=== PATIENT | male | born 1935 | race Caucasian/White ===

== ENCOUNTER 2018-05-16 19:48 | Emergency (ER) | payer MEDICARE, OTHER ==
[2018-05-16 21:36] VITALS: BP 121/67
--- NOTE | 2018-05-16 23:33 | EDM.PDOC ---
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 However he was very embarrassed and did not want nourished C with bleeding was coming from. It truly was not coming from the urine but the scrotum. He has no pain in his abdomen pain, diarrhea, large stools, kidney stones, back pain, fever, or chills or cough. No history of straining himself or heavy lifting. 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: Other (see below) (No Pain) - Related Data Allergies Allergy/AdvReac Type Severity Reaction Status Date / Time No Known Allergies Allergy Verified 05/16/18 20:57 Home Meds: Home Meds Lisinopril 20 mg PO DAILY 01/23/16 [History] metFORMIN HCl [Metformin HCl] 1,000 mg PO BID 01/23/16 [History] Gabapentin [Neurontin] 300 mg PO 05/16/18 [History] atorvaSTATin [Lipitor] 05/16/18 [History] glipiZIDE [Glipizide ER] 5 mg PO 05/16/18 [History] hydroCHLOROthiazide [Hydrochlorothiazide] 05/16/18 [History] Past Medical History HEENT History: Reports: Epistaxis Cardiovascular History: Reports: High Cholesterol, Hypertension Gastrointestinal History: Reports: GERD Musculoskeletal History: Reports: Arthritis, Back Pain, Chronic, Osteoarthritis Endocrine/Metabolic History: Reports: Diabetes, Type II - Past Surgical History HEENT Surgical History: Reports: Cataract Surgery GI Surgical History: Reports: Appendectomy, Cholecystectomy Musculoskeletal Surgical History: Reports: Shoulder Surgery Social & Family History - Tobacco Use Smoking Status *Q: Never Smoker - Alcohol Use Days Per Week of Alcohol Use: 2 Number of Drinks Per Day: 1 Total Drinks Per Week: 2 - Recreational Drug Use Recreational Drug Use: No ED ROS GENERAL - Review of Systems Review Of Systems: See Below Constitutional: Reports: No Symptoms HEENT: Reports: No Symptoms Respiratory: Reports: No Symptoms Cardiovascular: Reports: No Symptoms Endocrine: Reports: No Symptoms GI/Abdominal: Reports: No Symptoms : Reports: No Symptoms Musculoskeletal: Reports: No Symptoms Skin: Reports: No Symptoms Neurological: Reports: No Symptoms Hematologic/Lymphatic: Reports: No Symptoms Immunologic: Reports: No Symptoms ED EXAM, RENAL/ - Physical Exam Exam: See Below Text/Narrative:: He is concerned about small amount of blood on the surface of the scrotum has no pain Exam Limited By: No Limitations General Appearance: Alert, WD/WN, No Apparent Distress Eye Exam: Bilateral Eye: Normal Inspection Ears: Normal External Exam, Normal Canal, Normal TMs Nose: Normal Inspection Throat/Mouth: Normal Inspection, Normal Lips, Normal Teeth, Normal Gums, Normal Oropharynx, Normal Voice Head: Atraumatic, Normocephalic Neck: Normal Inspection, Supple, Non-Tender Respiratory/Chest: No Respiratory Distress, Lungs Clear, Normal Breath Sounds, No Accessory Muscle Use, Chest Non-Tender Cardiovascular: Normal Peripheral Pulses, Regular Rate, Rhythm, No Edema, No Gallop, No JVD, No Murmur, No Rub (Male) Exam: No Hernia, Other (Punctate dermal capillary bleed 1 focal superficial venous varicosity 2 mm size with a 3 inch diameter spot of blood on right extremity placed in his previous underwear to stop the bleeding bleeding) Neurological: Alert, Oriented, CN II-XII Intact, Normal Cognition, Normal Gait, Normal Reflexes, No Motor/Sensory Deficits Psychiatric: Normal Affect Skin Exam: Warm, Normal Color, Other (Left scrotal punctate 2 mm radius crust of blood of a superficial per varicosity 2 mm size. He has about 30-40 superficial 2 mm varicosities on the scrotum) Lymphatic: No Adenopathy Course - Vital Signs Last Recorded V/S: Last Vital Signs Temp 37.2 C 05/16/18 20:00 Pulse 72 05/16/18 20:00 Resp 16 05/16/18 20:00 BP 121/67 05/16/18 20:00 Pulse Ox 93 L 05/16/18 20:00 - Orders/Labs/Meds Orders: Active Orders 24 hr Category Date Time Status UA W/MICROSCOPIC [URIN] Stat Lab 05/16/18 20:35 Ordered Labs: Laboratory Tests 05/16/18 Range/Units 20:35 Urine Color Yellow (YELLOW) Urine Appearance Clear (CLEAR) Urine pH 5.0 (5.0-6.5) Ur Specific [place] 1.015 (1.010-1.025) Urine Protein Negative (NEGATIVE) mg/dL Urine Glucose (UA) Normal (NEGATIVE) mg/dL Urine Ketones Negative (NEGATIVE) mg/dL Urine Occult Blood Negative (NEGATIVE) Urine Nitrite Negative (NEGATIVE) Urine Bilirubin Negative (NEGATIVE) Urine Urobilinogen Normal (NEGATIVE) mg/dL Ur Leukocyte Esterase Negative (NEGATIVE) Urine RBC 0-5 (0) Urine WBC 0-5 (0) Ur Squamous Epith Cells Occasional (NS,R,O) Urine Bacteria Rare H (NS) Departure - Departure Time of Disposition: 20:50 Disposition: Home, Self-Care 01 Clinical Impression: Scrotal varicose veins - Discharge Information *PRESCRIPTION DRUG MONITORING PROGRAM REVIEWED*: No *COPY OF PRESCRIPTION DRUG MONITORING REPORT IN PATIENT RENAN: No Referrals: Valdo Downs MD [Primary Care Provider] - Forms: ED Department Discharge Additional Instructions: you have approximately thirty scattered 2mm superficial 2m epidermal venous varicosiies today with your lawn mowing the friction of these veins on the skin surface of the scrotum against your pants opened up one small varicosity and then resulted in bleeding with pressure and time the bleeding should decrease I anticipate you will have potential for bleeding of any one of the other superficial varicosities in the future be sure to shower on daily basis to avoid any superficial infection there was no suggestion of infection on the exam tonight see your MD in week otherwise earlier if worse - My Orders Last 24 Hours: My Active Orders 05/16/18 20:35 UA W/MICROSCOPIC [URIN] Stat - Assessment/Plan Last 24 Hours: My Active Orders 05/16/18 20:35 UA W/MICROSCOPIC [URIN] Stat
== END 2018-05-16 21:10 | disposition home or self-care (01) ==
LOC: FB.ED 19:48
DX: I86.1 Scrotal varices (principal); I10 Essential (primary) hypertension; E78.00 Pure hypercholesterolemia, unspecified; K21.9 Gastro-esophageal reflux disease without esophagitis; E11.9 Type 2 diabetes mellitus without complications; Z79.899 Other long term (current) drug therapy; Z79.84 Long term (current) use of oral hypoglycemic drugs
CPT/HCPCS: 81001; 99283

== ENCOUNTER 2019-12-02 13:32 | Emergency (ER) | payer OTHER, MEDICARE ==
[2019-12-02] MEDS ORDERED: Metoprolol Tartrate 25 MG Tab PO ONE (13:42)
--- NOTE | 2019-12-02 14:11 | EDM.PDOC ---
ED HPI GENERAL MEDICAL PROBLEM - General Stated Complaint: TACHYCARDIA Time Seen by Provider: 12/02/19 13:55 Source of Information: Reports: Patient History Limitations: Reports: No Limitations - History of Present Illness INITIAL COMMENTS - FREE TEXT/NARRATIVE: Patient presented to the ER because of palpitations. He denies any chest pain, sypnea,nausea,vomiting or dizziness. He missed taking his lisinopril and HCTZ x 3 days. - Related Data Allergies Allergy/AdvReac Type Severity Reaction Status Date / Time No Known Allergies Allergy Verified 12/02/19 13:56 Home Meds: Home Meds Lisinopril 20 mg PO DAILY 01/23/16 [History] metFORMIN HCl [Metformin HCl] 1,000 mg PO BID 01/23/16 [History] Gabapentin [Neurontin] 300 mg PO 05/16/18 [History] atorvaSTATin [Lipitor] 05/16/18 [History] glipiZIDE [Glipizide ER] 5 mg PO 05/16/18 [History] hydroCHLOROthiazide [Hydrochlorothiazide] 05/16/18 [History] Past Medical History HEENT History: Reports: Epistaxis Cardiovascular History: Reports: High Cholesterol, Hypertension Gastrointestinal History: Reports: GERD Musculoskeletal History: Reports: Arthritis, Back Pain, Chronic, Osteoarthritis Endocrine/Metabolic History: Reports: Diabetes, Type II - Past Surgical History HEENT Surgical History: Reports: Cataract Surgery GI Surgical History: Reports: Appendectomy, Cholecystectomy Musculoskeletal Surgical History: Reports: Shoulder Surgery ED ROS GENERAL - Review of Systems Review Of Systems: See Below Constitutional: Reports: No Symptoms HEENT: Reports: No Symptoms Respiratory: Reports: No Symptoms Cardiovascular: Reports: No Symptoms. Denies: Lightheadedness Endocrine: Reports: No Symptoms GI/Abdominal: Reports: No Symptoms : Reports: No Symptoms Musculoskeletal: Reports: No Symptoms Skin: Reports: No Symptoms, Other Psychiatric: Reports: No Symptoms ED EXAM, GENERAL - Physical Exam Exam: See Below Exam Limited By: No Limitations General Appearance: Alert, No Apparent Distress Nose: Normal Inspection, Normal Mucosa Throat/Mouth: Normal Inspection, Normal Lips Head: Atraumatic, Normocephalic Neck: Normal Inspection, Supple, Non-Tender Respiratory/Chest: No Respiratory Distress, Lungs Clear, Normal Breath Sounds Cardiovascular: Normal Peripheral Pulses, No Edema, No Gallop, No Murmur, No Rub , Tachycardia Back Exam: Normal Inspection, Full Range of Motion Neurological: Alert, Oriented, CN II-XII Intact Psychiatric: Normal Affect Skin Exam: Warm Course - Vital Signs Text/Narrative:: labs/EKG was discussed with patient and verbalized full understanding EKG-Sinus Tach Trop-147 metoprolol tartrate 50 mg po x1 Heparin 5000 IV x1 Heparin 1000 u/hr ASA 324 mg lopressor 5 mg IV x2 doses Case discussed with Dr Keating who agreed with the above plan Last Recorded V/S: Last Vital Signs Temp 37.0 C 12/02/19 13:35 Pulse 82 12/02/19 15:06 Resp 18 12/02/19 13:35 BP 136/91 H 12/02/19 15:06 Pulse Ox 98 12/02/19 13:35 - Orders/Labs/Meds Orders: Active Orders 24 hr Category Date Time Status EKG Documentation Completion [RC] ASDIRECTED Care 12/02/19 13:42 Active Chest 1V Frontal [CR] Stat Exams 12/02/19 14:29 Ordered Heparin 25,000 Units @ 20MLS/HR Med 12/02/19 14:33 Ordered Heparin Sodium/0.45% NaCl [Heparin 25,000 Units in 1/2 NS 500 ML] 500 ml IV ASDIRECTED Sodium Chloride 0.9% [Saline Flush] Med 12/02/19 14:56 Ordered 10 ml FLUSH ASDIRECTED PRN EKG 12 Lead [EK] Routine Ther 12/02/19 13:41 Ordered Medication Orders Heparin Sodium/Sodium Chloride (Heparin 25,000 Units In 1/2 Ns 500 Ml) 500 mls @ 20 mls/hr IV ASDIRECTED ALICE Sodium Chloride (Saline Flush) 10 ml FLUSH ASDIRECTED PRN PRN Reason: Keep Vein Open Last Admin: 12/02/19 15:07 Dose: 10 ml Labs: Laboratory Tests 12/02/19 12/02/19 12/02/19 Range/Units 13:55 13:55 13:55 WBC 8.6 (4.5-12.0) X10-3/uL RBC 4.54 (4.30-5.75) x10(6)uL Hgb 12.9 L (13.5-17.8) g/dL Hct 38.8 (30.0-51.3) % MCV 85.3 (80-96) fL MCH 28.3 (27.7-33.6) pg MCHC 33.2 (32.2-35.4) g/dL RDW 13.2 (11.5-15.5) % Plt Count 339 (125-369) X10(3)uL MPV 7.3 L (7.4-10.4) fL Neut % (Auto) 69.9 (46-82) % Lymph % (Auto) 21.2 (13-37) % [place] % (Auto) 6.8 (4-12) % Eos % (Auto) 2 (1.0-5.0) % Baso % (Auto) 1 (0-2) % Neut # (Auto) 6.1 (1.6-8.3) # Lymph # (Auto) 1.8 (0.6-5.0) # [place] # (Auto) 0.6 (0.0-1.3) # Eos # (Auto) 0.1 (0.0-0.8) # Baso # (Auto) 0.0 (0.0-0.2) # PT (9.0-11.1) sec INR (1.00-1.24) APTT (24.4-33.2) SECONDS Sodium 143 (135-145) mmol/L Potassium 3.9 (3.5-5.3) mmol/L Chloride 103 (100-110) mmol/L Carbon Dioxide 29 (21-32) mmol/L BUN 22 H (7-18) mg/dL Creatinine 1.4 H (0.70-1.30) mg/dL Est Cr Clr Drug Dosing 37.32 mL/min Estimated GFR (MDRD) 48 L (>60) BUN/Creatinine Ratio 15.7 (9-20) Glucose 160 H (80-116) mg/dL Calcium 8.8 (8.6-10.2) mg/dL Magnesium (1.8-2.5) mg/dL Total Bilirubin 0.5 (0.1-1.3) mg/dL AST 15 (5-25) IU/L ALT 16 (12-36) U/L Alkaline Phosphatase 108 (56-112) IU/L Troponin I 147.4 H* (4.0-60.3) pg/mL NT-Pro-B Natriuret Pep (<=450) pg/mL Total Protein 7.7 (6.0-8.0) g/dL Albumin 3.6 (3.2-4.6) g/dL Globulin 4.1 g/dL Albumin/Globulin Ratio 0.9 12/02/19 12/02/19 12/02/19 Range/Units 13:55 14:00 14:00 WBC (4.5-12.0) X10-3/uL RBC (4.30-5.75) x10(6)uL Hgb (13.5-17.8) g/dL Hct (30.0-51.3) % MCV (80-96) fL MCH (27.7-33.6) pg MCHC (32.2-35.4) g/dL RDW (11.5-15.5) % Plt Count (125-369) X10(3)uL MPV (7.4-10.4) fL Neut % (Auto) (46-82) % Lymph % (Auto) (13-37) % [place] % (Auto) (4-12) % Eos % (Auto) (1.0-5.0) % Baso % (Auto) (0-2) % Neut # (Auto) (1.6-8.3) # Lymph # (Auto) (0.6-5.0) # [place] # (Auto) (0.0-1.3) # Eos # (Auto) (0.0-0.8) # Baso # (Auto) (0.0-0.2) # PT 10.5 (9.0-11.1) sec INR 1.09 (1.00-1.24) APTT 23.6 L (24.4-33.2) SECONDS Sodium (135-145) mmol/L Potassium (3.5-5.3) mmol/L Chloride (100-110) mmol/L Carbon Dioxide (21-32) mmol/L BUN (7-18) mg/dL Creatinine (0.70-1.30) mg/dL Est Cr Clr Drug Dosing mL/min Estimated GFR (MDRD) (>60) BUN/Creatinine Ratio (9-20) Glucose (80-116) mg/dL Calcium (8.6-10.2) mg/dL Magnesium 1.6 L (1.8-2.5) mg/dL Total Bilirubin (0.1-1.3) mg/dL AST (5-25) IU/L ALT (12-36) U/L Alkaline Phosphatase (56-112) IU/L Troponin I (4.0-60.3) pg/mL NT-Pro-B Natriuret Pep 3295 H* (<=450) pg/mL Total Protein (6.0-8.0) g/dL Albumin (3.2-4.6) g/dL Globulin g/dL Albumin/Globulin Ratio Meds: Medications Generic Name Dose Route Start Last Admin Trade Name Freq PRN Reason Stop Dose Admin Heparin Sodium/Sodium Chloride 500 mls @ 20 mls/hr 12/02/19 14:33 Heparin 25,000 Units In 1/2 Ns 500 Ml IV ASDIRECTED ALICE Sodium Chloride 10 ml 12/02/19 14:56 12/02/19 15:07 Saline Flush FLUSH 10 ml ASDIRECTED PRN Administration Keep Vein Open Discontinued Medications Generic Name Dose Route Start Last Admin Trade Name Freq PRN Reason Stop Dose Admin Aspirin 324 mg 12/02/19 14:32 12/02/19 14:45 Aspirin PO 12/02/19 14:33 324 mg ONETIME ONE Administration Heparin Sodium (Porcine) 5,000 units 12/02/19 14:32 12/02/19 14:54 Heparin Sodium IVPUSH 12/02/19 14:33 5,000 units ONETIME ONE Administration Metoprolol Tartrate 5 mg/ 55 mls @ 100 mls/hr 12/02/19 14:31 12/02/19 14:47 Sodium Chloride IV 12/02/19 15:03 100 mls/hr ONETIME ONE Administration Metoprolol Tartrate 50 mg 12/02/19 13:42 12/02/19 13:55 Lopressor PO 12/02/19 13:43 50 mg ONETIME ONE Administration Metoprolol Tartrate 5 mg 12/02/19 14:57 12/02/19 15:06 Lopressor IVPUSH 12/02/19 14:58 5 mg ONETIME ONE Administration Departure - Departure Time of Disposition: 15:00 Disposition: DC/Tfer to Acute Hospital 02 Reason for Transfer *Q: Other (AMI,CHF) Condition: Good Clinical Impression: Acute myocardial infarction, CHF (congestive heart failure) Referrals: PCP,Not In Area [Primary Care Provider] - Sepsis Event Note - Focused Exam Vital Signs: Vital Signs Temp Pulse Pulse Resp BP BP Pulse Ox 12/02/19 15:06 82 136/91 H 12/02/19 14:47 130 H 131/81 12/02/19 13:55 134 H 150/82 H 12/02/19 13:35 37.0 C 134 H 18 150/82 H 98 Date Exam was Performed: 12/02/19 Time Exam was Performed: 15:12 - My Orders Last 24 Hours: My Active Orders 12/02/19 13:41 EKG 12 Lead [EK] Routine 12/02/19 13:42 EKG Documentation Completion [RC] ASDIRECTED 12/02/19 14:29 Chest 1V Frontal [CR] Stat 12/02/19 14:33 Heparin 25,000 Units @ 20MLS/HR Heparin Sodium/0.45% NaCl [Heparin 25,000 Units in 1/2 NS 500 ML] 500 ml IV ASDIRECTED 12/02/19 14:56 Sodium Chloride 0.9% [Saline Flush] 10 ml FLUSH ASDIRECTED PRN - Assessment/Plan Last 24 Hours: My Active Orders 12/02/19 13:41 EKG 12 Lead [EK] Routine 12/02/19 13:42 EKG Documentation Completion [RC] ASDIRECTED 12/02/19 14:29 Chest 1V Frontal [CR] Stat 12/02/19 14:33 Heparin 25,000 Units @ 20MLS/HR Heparin Sodium/0.45% NaCl [Heparin 25,000 Units in 1/2 NS 500 ML] 500 ml IV ASDIRECTED 12/02/19 14:56 Sodium Chloride 0.9% [Saline Flush] 10 ml FLUSH ASDIRECTED PRN
[2019-12-02] MEDS ORDERED: Metoprolol Tartrate 5 MG in Sodium Chloride 0.9% 50 ML IV ONE (14:31)
[2019-12-02] MEDS ORDERED: Heparin Sodium 5,000 Units/ML Vial IVPUSH ONE (14:32)
[2019-12-02] MEDS ORDERED: Aspirin 81 MG Tab.Chew PO ONE (14:32)
[2019-12-02] MEDS ORDERED: Heparin Sodium/0.45% NaCl 500 ML IV SCH (14:33)
[2019-12-02] MEDS ORDERED: Metoprolol Tartrate 5 MG/5 ML SDV IVPUSH ONE (14:57)
[2019-12-02] MEDS: Sodium Chloride 0.9% 10 ML Syringe FLUSH PRN ×3 (14:59→15:40)
[2019-12-02] MEDS ORDERED: Diltiazem 25 MG/5 ML SDV IVPUSH ONE (15:19)
[2019-12-02 17:12] VITALS: BP 102/50; PULSE 64
== END 2019-12-02 16:00 ==
LOC: FB.ED 13:32
DX: I21.9 Acute myocardial infarction, unspecified (principal); I11.0 Hypertensive heart disease with heart failure; I50.9 Heart failure, unspecified; E78.00 Pure hypercholesterolemia, unspecified; K21.9 Gastro-esophageal reflux disease without esophagitis; M19.90 Unspecified osteoarthritis, unspecified site; E11.9 Type 2 diabetes mellitus without complications; Z79.899 Other long term (current) drug therapy; Z79.84 Long term (current) use of oral hypoglycemic drugs
CPT/HCPCS: 36415; 71045; 80053; 83735; 83880; 84484; 85025; 85610; 85730; 93005; 96365; 96375; 96376; 99285; A9270; J1644; J3490; J7050

== ENCOUNTER 2020-07-20 11:26 | Inpatient (IN) | payer MEDICARE, OTHER ==
--- NOTE | 2020-07-20 13:14 | CT ---
INDICATION: Fall, head injury-fell on face. Memory loss now. Confusion. CT HEAD WITHOUT CONTRAST: Spiral 3.75 mm axial sections were obtained through the brain without contrast 07/20/2020 with axial, sagittal and coronal reconstructions and compared with 06/07/2015. Total exam DLP was 1296.53 mGy-cm. The mastoid air cells and paranasal sinuses appear to be well aerated. Moderate degenerative changes noted at the odontoid-atlanto joint. No cranial fracture site was noted. There is suggestion of some soft tissue swelling frontally, especially on the left. On the left, a minimal scalp hematoma is suggested. The orbits appear to be intact. No significant shift of midline structures was noted. The ventricles are prominent, compatible with central atrophy. There is a progression of white matter disease with decreased density, periventricular in location, compatible with moderate microvascular disease type changes, although other causes of leukoencephalopathy cannot be excluded. Internal carotid artery and vertebral artery calcifications are noted. In the left basal ganglia, there is a rounded area of decreased density, which is new compared with the previous study and may represent a lacunar infarct, possibly one that is evolving. No other abnormal areas of density are identified-no bleeding site or hematoma was seen. Calcifications are noted in both basal ganglia, most likely not of clinical significance. IMPRESSION: 1. No definite acute intracranial abnormality, although there is a new abnormal area of density in the left basal ganglia, which likely represents a lacunar infarct, and could be evolving. 2. Cerebral vascular disease with arterial calcifications and white matter changes compatible with moderate microvascular disease. 3. Central atrophy. [facility]
--- NOTE | 2020-07-20 13:21 | CT ---
INDICATION: Fall, facial injury. MAXILLOFACIAL SINUS CT: Axial 2.5 mm images were obtained through the maxillofacial area and revealed no evidence of a fracture site. There is a very minimal retention cyst at the floor of the right maxillary antrum with the maxillary infundibula appearing patent and the paranasal sinuses are otherwise well aerated. Hypertrophic degenerative changes are noted at the odontoid atlanto joint with sclerosis and subchondral cystic changes present in that area. IMPRESSION: No acute fracture of the maxillofacial bones. Total exam DLP was 203.72 mGy-cm. MTDD
--- NOTE | 2020-07-20 13:36 | CT ---
INDICATION: Fall, injury. CT CERVICAL SPINE: Spiral 2.5 mm axial sections were obtained through the cervical spine with sagittal and coronal reconstructions, 07/20/2020-no comparison. Total exam DLP was 462.47 mGy-cm. Hypertrophic degenerative changes are noted with subchondral cystic changes at the odontoid atlanto joint, hypertrophic changes are present with sclerosis. There is some minimal narrowing of the odontoid atlanto interval. Relative mild hypertrophic degenerative changes are noted at the lateral masses of the upper and middle levels with bridging hyperostotic changes noted anteriorly and posteriorly at C2-3 and mostly anteriorly at C3-4 and where the most prominent hypertrophic changes are present. Hypertrophic changes anteriorly and posterolaterally are noted at C4-5, C5-6 and C6-7. Narrowing of the disc spaces at C4-5 and especially C5-6 and C6-7 is noted. Hypertrophic changes are also noted anteriorly and laterally at C7-T1. There is some narrowing of the neural foramina at C4-5 and C5-6 on the right and C5-6 mainly on the left. The vertebral elements appear to be well aligned without a definite fracture or dislocation identified. Hypertrophic changes are noted at the uncinate joints in general. There may be partial fusion of the uncinate joints at C2-3. Anterior and posterior partial fusion at the C2-3 level may also be present, although the appearance may simply be on the basis of bridging hyperostosis. The posterior elements do not appear to be fused fully. Vertebral body heights appear to be fairly well maintained. Bone density appear to be grossly normal. However, at the posterior elements of C5-6, there are bony growths on either side of the midline off the lamina, which protrude into the spinal canal narrowing it anterior posteriorly slightly. These changes may represent osteomas or possibly unusual osteoid osteoma. Nuclear bone imaging may be helpful for further evaluation, as well as MRI. An additional similar finding is noted off the lamina which appears more hypertrophic, degenerative in nature at the C4 level on the left. IMPRESSION: 1. No definite acute fracture or dislocation. 2. 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 3. Additional bony appearing densities seen posteriorly impinging on the canal slightly at C5-6. Etiology indeterminate, could represent osteoma. Report was called to Dr. Guerra at [address] [facility]
[2020-07-20] MEDS ORDERED: Iopamidol 755 Mg/ML 100 ML Bottle IV ONE (13:50)
[2020-07-20] MEDS ORDERED: Diatrizoate Meglumine/Diatrizoate Sodium 37% 30 ML Bottle PO ONE (13:50)
[2020-07-20] MEDS: Sodium Chloride 0.9% 1,000 ML IV SCH ×2 (14:46→22:59)
--- NOTE | 2020-07-20 14:53 | PCM.HP.2 ---
H&P History of Present Illness - General Date of Service: 07/20/20 Admit Problem/Dx: Admission Diagnosis/Problem Admission Diagnosis/Problem Anemia Source of Information: Patient, Old Records History Limitations: Reports: Other (Memory loss) - History of Present Illness Initial Comments - Free Text/Narative: There is a 84-year-old male patient is a resident of the [facility]. He comes to the ER because he fell and hit his face. He was found to have a hemoglobin of just above 5. He states he's had some blood in his stool. He is on anticoagulation for atrial fibrillation currently. He denies any fevers, chills, stomach aches, nausea, vomiting, hematemesis, dysuria, pyuria, hematuria. He says he feels weak when he walks. He does not remember where he lives. He thinks he still lives and [place]. - Related Data Allergies/Adverse Reactions: Allergies Allergy/AdvReac Type Severity Reaction Status Date / Time No Known Allergies Allergy Verified 12/02/19 13:56 Home Medications: Home Meds metFORMIN HCl [Metformin HCl] 1,000 mg PO BIDMEALS 01/23/16 [History] Donepezil [Aricept] 5 mg PO BEDTIME 12/02/19 [History] Acetaminophen 650 mg PO Q4H PRN 07/20/20 [History] Acetaminophen [Acetaminophen ER] 1,300 mg PO BID PRN 07/20/20 [History] Apixaban [Eliquis] 2.5 mg PO BID 07/20/20 [History] Aspirin [Halfprin] 81 mg PO DAILY 07/20/20 [History] Furosemide [Lasix] 20 mg PO DAILY 07/20/20 [History] Gabapentin [Neurontin] 300 mg PO DAILY 07/20/20 [History] Loperamide [Imodium] 2 mg PO ASDIRECTED PRN 07/20/20 [History] Mag Hydrox/Aluminum Hyd/Simeth [Mylanta Maximum Strength Liq] 10 ml PO QID PRN 07/20/20 [History] Magnesium Hydroxide [Milk of Magnesia] 30 ml PO DAILY PRN 07/20/20 [History] Metoprolol Tartrate [Lopressor] 50 mg PO BID 07/20/20 [History] Triamcinolone Acetonide [Triamcinolone Acetonide 0.1% Crm] 1 applic TOP TID PRN 07/20/20 [History] atorvaSTATin [Lipitor] 40 mg PO DAILY 07/20/20 [History] bisacodyL [Dulcolax] 10 mg RC Q3D PRN 07/20/20 [History] dilTIAZem HCL [Cartia Xt] 120 mg PO DAILY 07/20/20 [History] glipiZIDE [Glucotrol] 2.5 mg PO BID 07/20/20 [History] guaiFENesin [Robitussin] 200 mg PO Q4H PRN 07/20/20 [History] Past Medical History HEENT History: Reports: Epistaxis Cardiovascular History: Reports: Afib, High Cholesterol, Hypertension, [place] Gastrointestinal History: Reports: GERD Musculoskeletal History: Reports: Arthritis, Back Pain, Chronic, Osteoarthritis Endocrine/Metabolic History: Reports: Diabetes, Type II - Past Surgical History HEENT Surgical History: Reports: Cataract Surgery GI Surgical History: Reports: Appendectomy, Cholecystectomy Musculoskeletal Surgical History: Reports: Shoulder Surgery Social & Family History - Tobacco Use Tobacco Use Status *Q: Never Tobacco User - Caffeine Use Caffeine Use: Reports: Coffee - Living Situation & Occupation Social History Comment: Lives in the [facility]. H&P Review of Systems - Review of Systems: Review Of Systems: See Below General: Reports: Weakness HEENT: Reports: No Symptoms Pulmonary: Reports: No Symptoms Cardiovascular: Reports: No Symptoms Gastrointestinal: Reports: Bloody Stool Genitourinary: Reports: No Symptoms Skin: Reports: Other (He hurt his face and his neck.) Psychiatric: Reports: Other (Memory loss) Hematologic/Lymphatic: Reports: No Symptoms Immunologic: Reports: No Symptoms Exam - Exam Exam: See Below - Vital Signs Vital Signs: Last Vital Signs Temp 96.5 F L 07/20/20 11:26 Pulse 122 H 07/20/20 11:26 Resp 23 H 07/20/20 11:26 BP 121/65 07/20/20 11:26 Pulse Ox 99 07/20/20 11:26 Weight: 190 lb 1.6 oz - Exam General: Alert, Cooperative. No: Oriented HEENT: Hearing Intact, Posterior Pharynx Clear, TMs Clear, Other (Abrasion on his nose) Neck: Supple, Trachea Midline Lungs: Clear to Auscultation, Normal Respiratory Effort Cardiovascular: Regular Rate, Regular Rhythm GI/Abdominal Exam: Normal Bowel Sounds, Soft, Non-Tender, No Distention Extremities: Normal Inspection, Non-Tender, No Pedal Edema Skin: Warm, Intact Neuro Extensive - Mental Status: Alert, Normal Mood/Affect. No: Oriented x3, Normal Cognition Psychiatric: Alert, Normal Affect, Normal Mood - Patient Data Lab Results Last 24 hrs: Laboratory Results - last 24 hr 07/20/20 07/20/20 07/20/20 Range/Units 12:15 12:15 12:15 WBC 7.6 (4.5-12.0) X10-3/uL RBC 2.41 L (4.30-5.75) x10(6)uL Hgb 5.4 L* D (13.5-17.8) g/dL Hct 17.2 L* D (30.0-51.3) % MCV 71.3 L (80-96) fL MCH 22.3 L (27.7-33.6) pg MCHC 31.3 L (32.2-35.4) g/dL RDW 19.8 H (11.5-15.5) % Plt Count 331 (125-369) X10(3)uL MPV 6.8 L (7.4-10.4) fL Neut % (Auto) 76.0 (46-82) % Lymph % (Auto) 12.2 L (13-37) % [place] % (Auto) 9.9 (4-12) % Eos % (Auto) 1 (1.0-5.0) % Baso % (Auto) 1 (0-2) % Neut # (Auto) 5.9 (1.6-8.3) # Lymph # (Auto) 0.9 (0.6-5.0) # [place] # (Auto) 0.7 (0.0-1.3) # Eos # (Auto) 0.1 (0.0-0.8) # Baso # (Auto) 0.0 (0.0-0.2) # PT 12.7 H (9.0-11.1) sec INR 1.19 (1.00-1.24) APTT 23.1 L (24.4-33.2) SECONDS Sodium 141 (135-145) mmol/L Potassium 4.0 (3.5-5.3) mmol/L Chloride 103 (100-110) mmol/L Carbon Dioxide 27 (21-32) mmol/L BUN 47 H D (7-18) mg/dL Creatinine 1.4 H (0.70-1.30) mg/dL Est Cr Clr Drug Dosing TNP Estimated GFR (MDRD) 48 L (>60) BUN/Creatinine Ratio 33.6 H (9-20) Glucose 167 H (80-116) mg/dL Calcium 8.9 (8.6-10.2) mg/dL Total Bilirubin 0.5 (0.1-1.3) mg/dL AST 21 D (5-25) IU/L ALT 21 D (12-36) U/L Alkaline Phosphatase 105 (56-112) IU/L Troponin I (4.0-60.3) pg/mL Total Protein 6.8 (6.0-8.0) g/dL Albumin 3.1 L (3.2-4.6) g/dL Globulin 3.7 g/dL Albumin/Globulin Ratio 0.8 Blood Type Crossmatch 07/20/20 07/20/20 Range/Units 12:15 12:15 WBC (4.5-12.0) X10-3/uL RBC (4.30-5.75) x10(6)uL Hgb (13.5-17.8) g/dL Hct (30.0-51.3) % MCV (80-96) fL MCH (27.7-33.6) pg MCHC (32.2-35.4) g/dL RDW (11.5-15.5) % Plt Count (125-369) X10(3)uL MPV (7.4-10.4) fL Neut % (Auto) (46-82) % Lymph % (Auto) (13-37) % [place] % (Auto) (4-12) % Eos % (Auto) (1.0-5.0) % Baso % (Auto) (0-2) % Neut # (Auto) (1.6-8.3) # Lymph # (Auto) (0.6-5.0) # [place] # (Auto) (0.0-1.3) # Eos # (Auto) (0.0-0.8) # Baso # (Auto) (0.0-0.2) # PT (9.0-11.1) sec INR (1.00-1.24) APTT (24.4-33.2) SECONDS Sodium (135-145) mmol/L Potassium (3.5-5.3) mmol/L Chloride (100-110) mmol/L Carbon Dioxide (21-32) mmol/L BUN (7-18) mg/dL Creatinine (0.70-1.30) mg/dL Est Cr Clr Drug Dosing Estimated GFR (MDRD) (>60) BUN/Creatinine Ratio (9-20) Glucose (80-116) mg/dL Calcium (8.6-10.2) mg/dL Total Bilirubin (0.1-1.3) mg/dL AST (5-25) IU/L ALT (12-36) U/L Alkaline Phosphatase (56-112) IU/L Troponin I 26.7 (4.0-60.3) pg/mL Total Protein (6.0-8.0) g/dL Albumin (3.2-4.6) g/dL Globulin g/dL Albumin/Globulin Ratio Blood Type O POSITIVE Crossmatch See Detail Result Diagrams: 07/20/20 12:15 07/20/20 12:15 Kalpesh Results Last 24 hrs: Microbiology 07/20/20 14:10 Stool Occult Blood (KALPES[facility]) - Final Stool / Feces Sepsis Event Note - Evaluation Sepsis Screening Result: No Definite Risk - Focused Exam Vital Signs: Vital Signs Temp Pulse Resp BP Pulse Ox 07/20/20 11:26 96.5 F L 122 H 23 H 121/65 99 - Problem List (1) Facial contusion SNOMED Code(s): 579620874 ICD Code: S00.83XA - CONTUSION OF OTHER PART OF HEAD, INITIAL ENCOUNTER Status: Acute Current Visit: Yes (2) Fall SNOMED Code(s): 1123378, 840002580 ICD Code: W19.XXXA - UNSPECIFIED FALL, INITIAL ENCOUNTER Status: Acute Current Visit: Yes (3) Memory loss SNOMED Code(s): 02605474 ICD Code: R41.3 - OTHER AMNESIA Status: Acute Current Visit: Yes (4) Microcytic anemia SNOMED Code(s): 499911615 ICD Code: D50.9 - IRON DEFICIENCY ANEMIA, UNSPECIFIED Status: Acute Current Visit: Yes (5) Palliative care status SNOMED Code(s): 077514464 ICD Code: Z51.5 - ENCOUNTER FOR PALLIATIVE CARE Status: Acute Current Visit: Yes Problem List Initiated/Reviewed/Updated: Yes Orders Last 24hrs: Active Orders 24 hr Category Date Time Status Patient Status Manage Transfer [TRANSFER] Routine ADT 07/20/20 14:13 Active EKG Documentation Completion [RC] ASDIRECTED Care 07/20/20 11:53 Active Up With Assistance [RC] ASDIRECTED Care 07/20/20 14:45 Active Clear Liquid Diet [DIET] Diet 07/20/20 Dinner Active Abdomen Pelvis w Cont [CT] Stat Exams 07/20/20 13:08 Ordered PACKED CELLS [RED BLOOD CELLS LP] [BBK] Stat Lab 07/20/20 12:15 Received TYPE AND SCREEN [BBK] Stat Lab 07/20/20 12:15 Received Sodium Chloride 0.9% [Normal Saline] 1,000 ml Med 07/20/20 14:30 Active IV ASDIRECTED Sodium Chloride 0.9% [Normal Saline] 250 ml Med 07/20/20 14:00 Active IV ASDIRECTED SCD [Sequential Compression Device] [OM.PC] Routine Oth 07/20/20 14:45 Ordered Transfuse Red Blood Cells [COMM] Stat Oth 07/20/20 13:52 Ordered Resuscitation Status Routine Resus Stat 07/20/20 14:44 Ordered EKG 12 Lead [EK] Routine Ther 07/20/20 11:52 Ordered Medication Orders Sodium Chloride (Normal Saline) 250 mls @ 100 mls/hr IV ASDIRECTED ALICE Sodium Chloride (Normal Saline) 1,000 mls @ 100 mls/hr IV ASDIRECTED ALICE Last Admin: 07/20/20 14:46 Dose: 100 mls/hr Documented by: BEBO Assessment/Plan Comment:: 1. Admit for inpatient. 2. Give 2 units of red blood cells. 3. Waiting for guaiac stool. Consider surgical consult based on results. 4. DNR/DNI per what he was in the [facility]. 5. Serial hemoglobins 6. Clear liquid diet 7. Up with assist. 8. For clot prophylaxis SCDs. 9. Restart medications but hold anticoagulants and aspirin 10. Accu-Cheks twice a day. - Mortality Measure Prognosis:: Good
[2020-07-20] MEDS ORDERED: guaiFENesin 100 MG/5 ML Soln 5 ML UD Cup PO PRN (15:09)
[2020-07-20] MEDS ORDERED: Loperamide 2 MG Cap PO PRN (15:09)
[2020-07-20] MEDS ORDERED: Acetaminophen 650 MG Tab.ER PO PRN (15:09)
[2020-07-20] MEDS ORDERED: Magnesium Hydroxide 400 MG/5 ML Susp 30 ML Cup PO PRN (15:09)
[2020-07-20] MEDS ORDERED: Triamcinolone Acetonide 0.1% Crm 15 GM Tube TOP PRN (15:09)
[2020-07-20] MEDS ORDERED: Bisacodyl 10 MG Supp RECTAL PRN (15:09)
[2020-07-20] MEDS ORDERED: Aluminum Hydroxide/Magnesium Hydroxide Susp 30 ML Cup PO PRN (15:21)
--- NOTE | 2020-07-20 15:30 | EDM.PDOC ---
ED HPI GENERAL MEDICAL PROBLEM - General Chief Complaint: Head Injury Stated Complaint: FALL Time Seen by Provider: 07/20/20 11:35 Source of Information: Reports: Patient, Old Records History Limitations: Reports: Other - History of Present Illness INITIAL COMMENTS - FREE TEXT/NARRATIVE: Patient presented to the ED from [facility] because of a fall. He fell while sitting on a recliner and hit his face down into the floor. He sustained some facail abrasions. There is no LOC after the fall. Mr Desai said he is feeling weak at times and lately he had some dark looking stools. He has a history of AFIB and is taking eliquis and aspirin. - Related Data Allergies Allergy/AdvReac Type Severity Reaction Status Date / Time No Known Allergies Allergy Verified 12/02/19 13:56 Home Meds: Home Meds metFORMIN HCl [Metformin HCl] 1,000 mg PO BIDMEALS 01/23/16 [History] Donepezil [Aricept] 10 mg PO BEDTIME 12/02/19 [History] Acetaminophen 650 mg PO Q4H PRN 07/20/20 [History] Acetaminophen [Acetaminophen ER] 1,300 mg PO BID PRN 07/20/20 [History] Apixaban [Eliquis] 2.5 mg PO BID 07/20/20 [History] Aspirin [Halfprin] 81 mg PO DAILY 07/20/20 [History] Furosemide [Lasix] 20 mg PO DAILY 07/20/20 [History] Gabapentin [Neurontin] 300 mg PO DAILY 07/20/20 [History] Loperamide [Imodium] 2 mg PO ASDIRECTED PRN 07/20/20 [History] Mag Hydrox/Aluminum Hyd/Simeth [Mylanta Maximum Strength Liq] 10 ml PO QID PRN 07/20/20 [History] Magnesium Hydroxide [Milk of Magnesia] 30 ml PO DAILY PRN 07/20/20 [History] Metoprolol Tartrate [Lopressor] 50 mg PO BID 07/20/20 [History] Triamcinolone Acetonide [Triamcinolone Acetonide 0.1% Crm] 1 applic TOP TID PRN 07/20/20 [History] atorvaSTATin [Lipitor] 40 mg PO DAILY 07/20/20 [History] bisacodyL [Dulcolax] 10 mg RC Q3D PRN 07/20/20 [History] dilTIAZem HCL [Cartia Xt] 120 mg PO DAILY 07/20/20 [History] glipiZIDE [Glucotrol] 2.5 mg PO BID 07/20/20 [History] guaiFENesin [Robitussin] 200 mg PO Q4H PRN 07/20/20 [History] Past Medical History HEENT History: Reports: Epistaxis Cardiovascular History: Reports: Afib, High Cholesterol, Hypertension, [place] Gastrointestinal History: Reports: GERD Musculoskeletal History: Reports: Arthritis, Back Pain, Chronic, Osteoarthritis Endocrine/Metabolic History: Reports: Diabetes, Type II - Past Surgical History HEENT Surgical History: Reports: Cataract Surgery GI Surgical History: Reports: Appendectomy, Cholecystectomy Musculoskeletal Surgical History: Reports: Shoulder Surgery Social & Family History - Tobacco Use Tobacco Use Status *Q: Never Tobacco User - Caffeine Use Caffeine Use: Reports: Coffee ED ROS GENERAL - Review of Systems Review Of Systems: See Below Constitutional: Reports: No Symptoms HEENT: Reports: No Symptoms Respiratory: Reports: No Symptoms Cardiovascular: Reports: No Symptoms Endocrine: Reports: No Symptoms GI/Abdominal: Reports: No Symptoms : Reports: No Symptoms Musculoskeletal: Reports: No Symptoms Skin: Reports: Other (abrasions) Neurological: Reports: Weakness Psychiatric: Reports: No Symptoms Hematologic/Lymphatic: Reports: No Symptoms Immunologic: Reports: No Symptoms ED EXAM, GENERAL - Physical Exam Exam: See Below Exam Limited By: No Limitations General Appearance: Alert, No Apparent Distress Ears: Normal External Exam, Normal [place] Nose: Normal Inspection, Normal Mucosa, No Blood Throat/Mouth: Normal Inspection, Normal Lips, Normal Teeth Head: Atraumatic, Normocephalic Neck: Normal Inspection, Supple, Non-Tender, Full Range of Motion Respiratory/Chest: No Respiratory Distress, Lungs Clear, Normal Breath Sounds, No Accessory Muscle Use Cardiovascular: Normal Peripheral Pulses, Regular Rate, Rhythm, No Edema, No Gallop, No JVD, No Murmur GI/Abdominal: Normal Bowel Sounds, Soft, Non-Tender, No Distention Extremities: Normal Inspection, Non-Tender, No Pedal Edema, Pedal Edema Neurological: No Motor/Sensory Deficits, Memory Loss Remote Events Psychiatric: Normal Affect Skin Exam: Warm Course - Vital Signs Text/Narrative:: Labs/Head and C-spine CT/Abd-pelvis CT was discussed with patient and his niece(POA) NS @ 100 ml/hr Transfuse 2 U PRBC Last Recorded V/S: Last Vital Signs Temp 35.8 C L 07/20/20 11:26 Pulse 122 H 07/20/20 11:26 Resp 23 H 07/20/20 11:26 BP 121/65 07/20/20 11:26 Pulse Ox 99 07/20/20 11:26 - Orders/Labs/Meds Orders: Active Orders 24 hr Category Date Time Status EKG Documentation Completion [RC] ASDIRECTED Care 07/20/20 11:53 Active Abdomen Pelvis w Cont [CT] Stat Exams 07/20/20 13:08 Taken PACKED CELLS [RED BLOOD CELLS LP] [BBK] Stat Lab 07/20/20 12:15 Results PATIENT RETYPE [BBK] Stat Lab 07/20/20 12:15 Results TYPE AND SCREEN [BBK] Stat Lab 07/20/20 12:15 Results Sodium Chloride 0.9% [Normal Saline] 250 ml Med 07/20/20 14:00 Active IV ASDIRECTED Transfuse Red Blood Cells [COMM] Stat Oth 07/20/20 13:52 Ordered EKG 12 Lead [EK] Routine Ther 07/20/20 11:52 Ordered Medication Orders Acetaminophen (Tylenol) 650 mg PO Q4H PRN PRN Reason: Pain/Fever Acetaminophen (Tylenol Arthritis Pain) 1,300 mg PO BID PRN PRN Reason: OSTEOARTHRITIS PAIN Al Hydroxide/Mg Hydroxide (Mag-Al Susp) 10 ml PO QID PRN PRN Reason: Indigestion Atorvastatin Calcium (Lipitor) 40 mg PO DAILY ALICE Bisacodyl (Dulcolax) 10 mg RECTAL Q3D PRN PRN Reason: Constipation Diltiazem HCl (Cardizem Cd) 120 mg PO DAILY ALICE Donepezil HCl (Aricept) 10 mg PO BEDTIME ALICE Furosemide (Lasix) 20 mg PO DAILY ALICE Gabapentin (Neurontin) 300 mg PO DAILY ALICE Glipizide (Glucotrol) 2.5 mg PO BIDAC ALICE Guaifenesin (Robitussin) 200 mg PO Q4H PRN PRN Reason: Cough Sodium Chloride (Normal Saline) 250 mls @ 100 mls/hr IV ASDIRECTED ALICE Sodium Chloride (Normal Saline) 1,000 mls @ 100 mls/hr IV ASDIRECTED ALICE Last Admin: 07/20/20 14:46 Dose: 100 mls/hr Documented by: [id number] Loperamide HCl (Imodium) 2 mg PO ASDIRECTED PRN PRN Reason: Diarrhea Magnesium Hydroxide (Milk Of Magnesia) 30 ml PO DAILY PRN PRN Reason: Constipation Metoprolol Tartrate (Lopressor) 50 mg PO BID ALICE Triamcinolone Acetonide (Triamcinolone Acetonide 0.1% Crm) 0 gm TOP TID PRN PRN Reason: Rash Labs: Laboratory Tests 07/20/20 07/20/20 07/20/20 Range/Units 12:15 12:15 12:15 WBC 7.6 (4.5-12.0) X10-3/uL RBC 2.41 L (4.30-5.75) x10(6)uL Hgb 5.4 L* D (13.5-17.8) g/dL Hct 17.2 L* D (30.0-51.3) % MCV 71.3 L (80-96) fL MCH 22.3 L (27.7-33.6) pg MCHC 31.3 L (32.2-35.4) g/dL RDW 19.8 H (11.5-15.5) % Plt Count 331 (125-369) X10(3)uL MPV 6.8 L (7.4-10.4) fL Neut % (Auto) 76.0 (46-82) % Lymph % (Auto) 12.2 L (13-37) % [place] % (Auto) 9.9 (4-12) % Eos % (Auto) 1 (1.0-5.0) % Baso % (Auto) 1 (0-2) % Neut # (Auto) 5.9 (1.6-8.3) # Lymph # (Auto) 0.9 (0.6-5.0) # [place] # (Auto) 0.7 (0.0-1.3) # Eos # (Auto) 0.1 (0.0-0.8) # Baso # (Auto) 0.0 (0.0-0.2) # PT 12.7 H (9.0-11.1) sec INR 1.19 (1.00-1.24) APTT 23.1 L (24.4-33.2) SECONDS Sodium 141 (135-145) mmol/L Potassium 4.0 (3.5-5.3) mmol/L Chloride 103 (100-110) mmol/L Carbon Dioxide 27 (21-32) mmol/L BUN 47 H D (7-18) mg/dL Creatinine 1.4 H (0.70-1.30) mg/dL Est Cr Clr Drug Dosing TNP Estimated GFR (MDRD) 48 L (>60) BUN/Creatinine Ratio 33.6 H (9-20) Glucose 167 H (80-116) mg/dL Calcium 8.9 (8.6-10.2) mg/dL Total Bilirubin 0.5 (0.1-1.3) mg/dL AST 21 D (5-25) IU/L ALT 21 D (12-36) U/L Alkaline Phosphatase 105 (56-112) IU/L Troponin I (4.0-60.3) pg/mL Total Protein 6.8 (6.0-8.0) g/dL Albumin 3.1 L (3.2-4.6) g/dL Globulin 3.7 g/dL Albumin/Globulin Ratio 0.8 Blood Type Gel Antibody Screen Crossmatch 07/20/20 07/20/20 Range/Units 12:15 12:15 WBC (4.5-12.0) X10-3/uL RBC (4.30-5.75) x10(6)uL Hgb (13.5-17.8) g/dL Hct (30.0-51.3) % MCV (80-96) fL MCH (27.7-33.6) pg MCHC (32.2-35.4) g/dL RDW (11.5-15.5) % Plt Count (125-369) X10(3)uL MPV (7.4-10.4) fL Neut % (Auto) (46-82) % Lymph % (Auto) (13-37) % [place] % (Auto) (4-12) % Eos % (Auto) (1.0-5.0) % Baso % (Auto) (0-2) % Neut # (Auto) (1.6-8.3) # Lymph # (Auto) (0.6-5.0) # [place] # (Auto) (0.0-1.3) # Eos # (Auto) (0.0-0.8) # Baso # (Auto) (0.0-0.2) # PT (9.0-11.1) sec INR (1.00-1.24) APTT (24.4-33.2) SECONDS Sodium (135-145) mmol/L Potassium (3.5-5.3) mmol/L Chloride (100-110) mmol/L Carbon Dioxide (21-32) mmol/L BUN (7-18) mg/dL Creatinine (0.70-1.30) mg/dL Est Cr Clr Drug Dosing Estimated GFR (MDRD) (>60) BUN/Creatinine Ratio (9-20) Glucose (80-116) mg/dL Calcium (8.6-10.2) mg/dL Total Bilirubin (0.1-1.3) mg/dL AST (5-25) IU/L ALT (12-36) U/L Alkaline Phosphatase (56-112) IU/L Troponin I 26.7 (4.0-60.3) pg/mL Total Protein (6.0-8.0) g/dL Albumin (3.2-4.6) g/dL Globulin g/dL Albumin/Globulin Ratio Blood Type O POSITIVE Gel Antibody Screen Negative Crossmatch See Detail Meds: Medications Generic Name Dose Route Start Last Admin Trade Name Freq PRN Reason Stop Dose Admin Acetaminophen 650 mg 07/20/20 15:09 Tylenol PO Q4H PRN Pain/Fever Acetaminophen 1,300 mg 07/20/20 15:09 Tylenol Arthritis Pain PO BID PRN OSTEOARTHRITIS PAIN Al Hydroxide/Mg Hydroxide 10 ml 07/20/20 15:21 Mag-Al Susp PO QID PRN Indigestion Atorvastatin Calcium 40 mg 07/21/20 09:00 Lipitor PO DAILY ALICE Bisacodyl 10 mg 07/20/20 15:09 Dulcolax RECTAL Q3D PRN Constipation Diltiazem HCl 120 mg 07/21/20 09:00 Cardizem Cd PO DAILY ALICE Donepezil HCl 10 mg 07/20/20 21:00 Aricept PO BEDTIME ALICE Furosemide 20 mg 07/21/20 09:00 Lasix PO DAILY ALICE Gabapentin 300 mg 07/21/20 09:00 Neurontin PO DAILY [facility] Glipizide 2.5 mg 07/20/20 17:30 Glucotrol PO BIDAC [facility] Guaifenesin 200 mg 07/20/20 15:09 Robitussin PO Q4H PRN Cough Sodium Chloride 250 mls @ 100 mls/hr 07/20/20 14:00 Normal Saline IV ASDIRECTED [facility] Sodium Chloride 1,000 mls @ 100 mls/hr 07/20/20 14:30 07/20/20 14:46 Normal Saline IV 100 mls/hr ASDIRECTED [facility] Administration Loperamide HCl 2 mg 07/20/20 15:09 Imodium PO ASDIRECTED PRN Diarrhea Magnesium Hydroxide 30 ml 07/20/20 15:09 Milk Of Magnesia PO DAILY PRN Constipation Metoprolol Tartrate 50 mg 07/20/20 21:00 Lopressor PO BID ALICE Triamcinolone Acetonide 0 gm 07/20/20 15:09 Triamcinolone Acetonide 0.1% Crm TOP TID PRN Rash Discontinued Medications Generic Name Dose Route Start Last Admin Trade Name Freq PRN Reason Stop Dose Admin Diatrizoate Meglum/Diatrizoate Sod 30 ml 07/20/20 13:50 07/20/20 14:47 Gastrografin 37% PO 07/20/20 13:51 30 ml . DIRECTED ONE Administration Iopamidol 100 ml 07/20/20 13:50 07/20/20 14:47 [id number] (76%) IV 07/20/20 13:51 100 ml . DIRECTED ONE Administration Departure - Departure Time of Disposition: 15:00 Disposition: Admitted As Inpatient 65 Condition: Good Clinical Impression: Anemia, Fall - Discharge Information Sepsis Event Note (ED) - Evaluation Sepsis Screening Result: No Definite Risk - Focused Exam Vital Signs: Vital Signs Temp Pulse Resp BP Pulse Ox 07/20/20 11:26 35.8 C L 122 H 23 H 121/65 99 - My Orders Last 24 Hours: My Active Orders 07/20/20 11:52 EKG 12 Lead [EK] Routine 07/20/20 11:53 EKG Documentation Completion [RC] ASDIRECTED 07/20/20 12:15 PACKED CELLS [RED BLOOD CELLS LP] [BBK] Stat PATIENT RETYPE [BBK] Stat TYPE AND SCREEN [BBK] Stat 07/20/20 13:08 Abdomen Pelvis w Cont [CT] Stat 07/20/20 13:52 Transfuse Red Blood Cells [COMM] Stat 07/20/20 14:00 Sodium Chloride 0.9% [Normal Saline] 250 ml IV ASDIRECTED - Assessment/Plan Last 24 Hours: My Active Orders 07/20/20 11:52 EKG 12 Lead [EK] Routine 07/20/20 11:53 EKG Documentation Completion [RC] ASDIRECTED 07/20/20 12:15 PACKED CELLS [RED BLOOD CELLS LP] [BBK] Stat PATIENT RETYPE [BBK] Stat TYPE AND SCREEN [BBK] Stat 07/20/20 13:08 Abdomen Pelvis w Cont [CT] Stat 07/20/20 13:52 Transfuse Red Blood Cells [COMM] Stat 07/20/20 14:00 Sodium Chloride 0.9% [Normal Saline] 250 ml IV ASDIRECTED
[2020-07-20] MEDS: Sodium Chloride 0.9% 250 ML IV SCH ×2 (16:05→19:47)
[2020-07-20] MEDS: glipiZIDE 5 MG Tab PO SCH (17:59)
[2020-07-20] MEDS ORDERED: Furosemide 20 MG/2 ML VIAL IVPUSH ONE (18:00)
[2020-07-20] MEDS: Metoprolol Tartrate 50 MG Tab PO SCH (20:00)
[2020-07-20] MEDS: Donepezil 10 MG Tab PO SCH (20:01)
[2020-07-20] MEDS ORDERED: Ondansetron 4 MG/2 ML SDV IVPUSH PRN ×2 (22:20→23:08)
[2020-07-21] MEDS: glipiZIDE 5 MG Tab PO SCH (06:38)
--- NOTE | 2020-07-21 08:15 | PCM.PN ---
- General Info Date of Service: 07/21/20 Admission Dx/Problem (Free Text): Patient states he may have a little abdominal pain but is not sure. He is very demented. He does not know aureus had at this point. He denies fevers, chills, cough, chest pain. He stated last night he has had some bloody stools. - Patient Data Vitals - Most Recent: Last Vital Signs Temp 97.6 F 07/21/20 05:02 Pulse 94 07/21/20 00:00 Resp 16 07/21/20 05:02 BP 110/58 L 07/21/20 00:00 Pulse Ox 93 L 07/21/20 05:02 Weight - Most Recent: 191 lb 3.2 oz I&O - Last 24 Hours: Intake & Output 07/20/20 07/21/20 07/21/20 22:59 06:59 14:59 Intake Total 610 582 Output Total 400 Balance 610 182 Lab Results Last 24 Hours: Laboratory Results - last 24 hr 07/20/20 07/20/20 07/20/20 Range/Units 12:15 12:15 12:15 WBC 7.6 (4.5-12.0) X10-3/uL RBC 2.41 L (4.30-5.75) x10(6)uL Hgb 5.4 L* D (13.5-17.8) g/dL Hct 17.2 L* D (30.0-51.3) % MCV 71.3 L (80-96) fL MCH 22.3 L (27.7-33.6) pg MCHC 31.3 L (32.2-35.4) g/dL RDW 19.8 H (11.5-15.5) % Plt Count 331 (125-369) X10(3)uL MPV 6.8 L (7.4-10.4) fL Neut % (Auto) 76.0 (46-82) % Lymph % (Auto) 12.2 L (13-37) % Rich % (Auto) 9.9 (4-12) % Eos % (Auto) 1 (1.0-5.0) % Baso % (Auto) 1 (0-2) % Neut # (Auto) 5.9 (1.6-8.3) # Lymph # (Auto) 0.9 (0.6-5.0) # Rich # (Auto) 0.7 (0.0-1.3) # Eos # (Auto) 0.1 (0.0-0.8) # Baso # (Auto) 0.0 (0.0-0.2) # PT 12.7 H (9.0-11.1) sec INR 1.19 (1.00-1.24) APTT 23.1 L (24.4-33.2) SECONDS Sodium 141 (135-145) mmol/L Potassium 4.0 (3.5-5.3) mmol/L Chloride 103 (100-110) mmol/L Carbon Dioxide 27 (21-32) mmol/L BUN 47 H D (7-18) mg/dL Creatinine 1.4 H (0.70-1.30) mg/dL Est Cr Clr Drug Dosing TNP Estimated GFR (MDRD) 48 L (>60) BUN/Creatinine Ratio 33.6 H (9-20) Glucose 167 H (80-116) mg/dL POC Glucose (74-100) mg/dL Calcium 8.9 (8.6-10.2) mg/dL Total Bilirubin 0.5 (0.1-1.3) mg/dL AST 21 D (5-25) IU/L ALT 21 D (12-36) U/L Alkaline Phosphatase 105 (56-112) IU/L Troponin I (4.0-60.3) pg/mL Total Protein 6.8 (6.0-8.0) g/dL Albumin 3.1 L (3.2-4.6) g/dL Globulin 3.7 g/dL Albumin/Globulin Ratio 0.8 Blood Type Gel Antibody Screen Crossmatch 07/20/20 07/20/20 07/20/20 Range/Units 12:15 12:15 14:25 WBC (4.5-12.0) X10-3/uL RBC (4.30-5.75) x10(6)uL Hgb 5.4 L* (13.5-17.8) g/dL Hct 17.7 L* (30.0-51.3) % MCV (80-96) fL MCH (27.7-33.6) pg MCHC (32.2-35.4) g/dL RDW (11.5-15.5) % Plt Count (125-369) X10(3)uL MPV (7.4-10.4) fL Neut % (Auto) (46-82) % Lymph % (Auto) (13-37) % Rich % (Auto) (4-12) % Eos % (Auto) (1.0-5.0) % Baso % (Auto) (0-2) % Neut # (Auto) (1.6-8.3) # Lymph # (Auto) (0.6-5.0) # Rich # (Auto) (0.0-1.3) # Eos # (Auto) (0.0-0.8) # Baso # (Auto) (0.0-0.2) # PT (9.0-11.1) sec INR (1.00-1.24) APTT (24.4-33.2) SECONDS Sodium (135-145) mmol/L Potassium (3.5-5.3) mmol/L Chloride (100-110) mmol/L Carbon Dioxide (21-32) mmol/L BUN (7-18) mg/dL Creatinine (0.70-1.30) mg/dL Est Cr Clr Drug Dosing Estimated GFR (MDRD) (>60) BUN/Creatinine Ratio (9-20) Glucose (80-116) mg/dL POC Glucose (74-100) mg/dL Calcium (8.6-10.2) mg/dL Total Bilirubin (0.1-1.3) mg/dL AST (5-25) IU/L ALT (12-36) U/L Alkaline Phosphatase (56-112) IU/L Troponin I 26.7 (4.0-60.3) pg/mL Total Protein (6.0-8.0) g/dL Albumin (3.2-4.6) g/dL Globulin g/dL Albumin/Globulin Ratio Blood Type O POSITIVE Gel Antibody Screen Negative Crossmatch See Detail 07/20/20 07/20/20 07/21/20 Range/Units 17:49 23:23 00:55 WBC (4.5-12.0) X10-3/uL RBC (4.30-5.75) x10(6)uL Hgb 7.1 L (13.5-17.8) g/dL Hct 22.4 L (30.0-51.3) % MCV (80-96) fL MCH (27.7-33.6) pg MCHC (32.2-35.4) g/dL RDW (11.5-15.5) % Plt Count (125-369) X10(3)uL MPV (7.4-10.4) fL Neut % (Auto) (46-82) % Lymph % (Auto) (13-37) % Rich % (Auto) (4-12) % Eos % (Auto) (1.0-5.0) % Baso % (Auto) (0-2) % Neut # (Auto) (1.6-8.3) # Lymph # (Auto) (0.6-5.0) # Rich # (Auto) (0.0-1.3) # Eos # (Auto) (0.0-0.8) # Baso # (Auto) (0.0-0.2) # PT (9.0-11.1) sec INR (1.00-1.24) APTT (24.4-33.2) SECONDS Sodium (135-145) mmol/L Potassium (3.5-5.3) mmol/L Chloride (100-110) mmol/L Carbon Dioxide (21-32) mmol/L BUN (7-18) mg/dL Creatinine (0.70-1.30) mg/dL Est Cr Clr Drug Dosing Estimated GFR (MDRD) (>60) BUN/Creatinine Ratio (9-20) Glucose (80-116) mg/dL POC Glucose 139 H 182 H (74-100) mg/dL Calcium (8.6-10.2) mg/dL Total Bilirubin (0.1-1.3) mg/dL AST (5-25) IU/L ALT (12-36) U/L Alkaline Phosphatase (56-112) IU/L Troponin I (4.0-60.3) pg/mL Total Protein (6.0-8.0) g/dL Albumin (3.2-4.6) g/dL Globulin g/dL Albumin/Globulin Ratio Blood Type Gel Antibody Screen Crossmatch 07/21/20 07/21/20 Range/Units 04:55 04:55 WBC 8.3 (4.5-12.0) X10-3/uL RBC 2.91 L (4.30-5.75) x10(6)uL Hgb 6.8 L* (13.5-17.8) g/dL Hct 21.5 L* (30.0-51.3) % MCV 73.9 L (80-96) fL MCH 23.3 L (27.7-33.6) pg MCHC 31.5 L (32.2-35.4) g/dL RDW 20.3 H (11.5-15.5) % Plt Count 312 (125-369) X10(3)uL MPV 6.6 L (7.4-10.4) fL Neut % (Auto) 71.5 (46-82) % Lymph % (Auto) 16.6 (13-37) % Rich % (Auto) 10.3 (4-12) % Eos % (Auto) 1 (1.0-5.0) % Baso % (Auto) 0 (0-2) % Neut # (Auto) 5.9 (1.6-8.3) # Lymph # (Auto) 1.4 (0.6-5.0) # Rich # (Auto) 0.9 (0.0-1.3) # Eos # (Auto) 0.1 (0.0-0.8) # Baso # (Auto) 0.0 (0.0-0.2) # PT (9.0-11.1) sec INR (1.00-1.24) APTT (24.4-33.2) SECONDS Sodium 140 (135-145) mmol/L Potassium 3.8 (3.5-5.3) mmol/L Chloride 103 (100-110) mmol/L Carbon Dioxide 31 (21-32) mmol/L BUN 50 H (7-18) mg/dL Creatinine 1.2 (0.70-1.30) mg/dL Est Cr Clr Drug Dosing 43.54 Estimated GFR (MDRD) 58 L (>60) BUN/Creatinine Ratio 41.7 H (9-20) Glucose 101 (80-116) mg/dL POC Glucose (74-100) mg/dL Calcium 8.5 L (8.6-10.2) mg/dL Total Bilirubin 0.9 (0.1-1.3) mg/dL AST 18 D (5-25) IU/L ALT 22 (12-36) U/L Alkaline Phosphatase 95 (56-112) IU/L Troponin I (4.0-60.3) pg/mL Total Protein 6.6 (6.0-8.0) g/dL Albumin 3.1 L (3.2-4.6) g/dL Globulin 3.5 g/dL Albumin/Globulin Ratio 0.9 Blood Type Gel Antibody Screen Crossmatch Kalpesh Results Last 24 Hours: Microbiology 07/20/20 14:10 Stool Occult Blood ([facility]) - Final Stool / Feces Med Orders - Current: Current Medications Acetaminophen (Tylenol) 650 mg PO Q4H PRN PRN Reason: Pain/Fever Acetaminophen (Tylenol Arthritis Pain) 1,300 mg PO BID PRN PRN Reason: OSTEOARTHRITIS PAIN Al Hydroxide/Mg Hydroxide (Mag-Al Susp) 10 ml PO QID PRN PRN Reason: Indigestion Atorvastatin Calcium (Lipitor) 40 mg PO DAILY [facility] Bisacodyl (Dulcolax) 10 mg RECTAL Q3D PRN PRN Reason: Constipation Diltiazem HCl (Cardizem Cd) 120 mg PO DAILY [facility] Donepezil HCl (Aricept) 10 mg PO BEDTIME [facility] Last Admin: 07/20/20 20:01 Dose: 10 mg Documented by: Furosemide (Lasix) 20 mg PO DAILY [facility] Gabapentin (Neurontin) 300 mg PO DAILY [facility] Glipizide (Glucotrol) 2.5 mg PO BIDAC [facility] Last Admin: 07/21/20 06:38 Dose: 2.5 mg Documented by: Guaifenesin (Robitussin) 200 mg PO Q4H PRN PRN Reason: Cough Sodium Chloride (Normal Saline) 250 mls @ 100 mls/hr IV ASDIRECTED [facility] Last Admin: 07/20/20 19:47 Dose: 100 mls/hr Documented by: Sodium Chloride (Normal Saline) 1,000 mls @ 100 mls/hr IV ASDIRECTED [facility] Last Admin: 07/20/20 22:59 Dose: 100 mls/hr Documented by: Sodium Chloride (Normal Saline) 250 mls @ 100 mls/hr IV ASDIRECTED [facility] Loperamide HCl (Imodium) 2 mg PO ASDIRECTED PRN PRN Reason: Diarrhea Magnesium Hydroxide (Milk Of Magnesia) 30 ml PO DAILY PRN PRN Reason: Constipation Metoprolol Tartrate (Lopressor) 50 mg PO BID [facility] Last Admin: 07/20/20 20:00 Dose: 50 mg Documented by: Ondansetron HCl (Zofran) 4 mg IVPUSH Q6H PRN PRN Reason: Nausea/Vomiting Last Admin: 07/20/20 23:42 Dose: 4 mg Documented by: Triamcinolone Acetonide (Triamcinolone Acetonide 0.1% Crm) 0 gm TOP TID PRN PRN Reason: Rash Discontinued Medications Diatrizoate Meglum/Diatrizoate Sod (Gastrografin 37%) 30 ml PO . DIRECTED ONE Stop: 07/20/20 13:51 Last Admin: 07/20/20 14:47 Dose: 30 ml Documented by: Furosemide (Lasix) 20 mg IVPUSH ONETIME ONE Stop: 07/20/20 18:01 Last Admin: 07/20/20 17:59 Dose: 20 mg Documented by: Iopamidol (Isovue-370 (76%)) 100 ml IV . DIRECTED ONE Stop: 07/20/20 13:51 Last Admin: 07/20/20 14:47 Dose: 100 ml Documented by: Ondansetron HCl (Zofran) 8 mg IVPUSH Q6H PRN PRN Reason: Nausea/Vomiting - Exam General: Alert, Cooperative. No: Oriented Lungs: Clear to Auscultation, Normal Respiratory Effort Cardiovascular: Regular Rate, Regular Rhythm, No Murmurs GI/Abdominal Exam: Normal Bowel Sounds, Soft, Non-Tender, No Distention Extremities: No Pedal Edema Sepsis Event Note - Evaluation Sepsis Screening Result: No Definite Risk - Focused Exam Vital Signs: Vital Signs Temp Temp Pulse Resp BP Pulse Ox 07/21/20 05:02 97.6 F 16 93 L 07/21/20 00:00 97.8 F 94 16 110/58 L 98 07/20/20 22:55 98.1 F 93 16 109/63 07/20/20 22:20 97.5 F 90 19 109/64 100 - Problem List & Annotations (1) Facial contusion SNOMED Code(s): 846317355 Code(s): S00.83XA - CONTUSION OF OTHER PART OF HEAD, INITIAL ENCOUNTER Status: Acute Current Visit: Yes (2) Fall SNOMED Code(s): 5689405, 606480161 Code(s): W19.XXXA - UNSPECIFIED FALL, INITIAL ENCOUNTER Status: Acute Current Visit: Yes (3) Memory loss SNOMED Code(s): 02575086 Code(s): R41.3 - OTHER AMNESIA Status: Acute Current Visit: Yes (4) Microcytic anemia SNOMED Code(s): 852288733 Code(s): D50.9 - IRON DEFICIENCY ANEMIA, UNSPECIFIED Status: Acute Current Visit: Yes (5) Palliative care status SNOMED Code(s): 415575757 Code(s): Z51.5 - ENCOUNTER FOR PALLIATIVE CARE Status: Acute Current Visit: Yes (6) GI bleed SNOMED Code(s): 74370675 Code(s): K92.2 - GASTROINTESTINAL HEMORRHAGE, UNSPECIFIED Status: Acute Current Visit: Yes (7) Dementia SNOMED Code(s): 97978011 Code(s): F03.90 - UNSPECIFIED DEMENTIA WITHOUT BEHAVIORAL DISTURBANCE Status: Acute Current Visit: Yes - Problem List Review Problem List Initiated/Reviewed/Updated: Yes - My Orders Last 24 Hours: My Active Orders 07/20/20 14:44 Resuscitation Status Routine 07/20/20 14:45 Up With Assistance [RC] ASDIRECTED SCD [Sequential Compression Device] [OM.PC] Routine 07/20/20 14:54 Accu Check [Blood Glucose Check, Bedside] [RC] BIDAC 07/20/20 17:42 Urinary Catheter Assessment [RC] QSHIFT 07/20/20 17:45 Garcia Catheter Insertion [Insert Urinary Catheter] [OM.PC] Q24H 07/21/20 08:00 Remove Garcia Catheter [Urinary Catheter Removal] [RC] PER UNIT ROUTINE 07/21/20 08:11 Transfuse RBC [Transfuse Red Blood Cells] [COMM] Urgent 07/21/20 08:12 Notify Provider Consults [RC] ASDIRECTED Consult to Physician [CONS] Routine 07/21/20 08:15 Sodium Chloride 0.9% [Normal Saline] 250 ml IV ASDIRECTED 07/21/20 08:50 HEMOGLOBIN/HEMATOCRIT,HH [HEME] Q4H - Plan Plan:: 1. Surgical consult with Dr. Wright. He has been notified. 2. 2 more units of RBCs. Continue serial hemoglobins. 3. Continue clear liquids 4.. Up with assist. 5. Will hold his glyburide
--- NOTE | 2020-07-21 08:46 | CT ---
INDICATION: Profound anemia. CT ABDOMEN AND PELVIS WITH CONTRAST: Spiral 3.75 mm axial sections were obtained through the abdomen and pelvis with oral and IV contrast (100 mL Isovue-370 at 2 mL per second) with sagittal and coronal reconstructions 07/20/20 and compared with 10/30/09. Total exam DLP was 1241.60 mGy-cm. There is now noted moderately large bilateral pleural effusion with infiltrate and/or atelectasis in the lower lobes bilaterally possibly related to pneumonia and pleuritis. The heart appears relatively enlarged compared with the previous study with mitral and some tricuspid calcifications. The gallbladder is absent compatible with history of its removal. There is localized abdominal ascites subdiaphragmatic at the dome of the liver to a greater extent than the spleen and tracking slightly into the paracolic gutters with no definite ascites in the pelvis identified. No specific liver abnormality was identified. The spleen appeared normal. The pancreas has a normal appearance. The adrenal glands appeared grossly normal. A probable simple cyst is noted at the midpole posterior lateral cortex of the right kidney, present previously and possibly slightly increased in size compared with 2010. No other renal masses were identified. There is noted a mild degree of renal fascial thickening compatible with some minimal renal cortical scarring. No retroperitoneal mass was identified. Retroperitoneal lymphadenopathy is mild and nonspecific. The aorta is calcified with calcifications noted in the right renal artery, superior mesenteric, iliac, and femoral arteries. The appendix is absent compatible appendectomy history. Prostate did not appear grossly enlarged. Urinary bladder appeared unremarkable. No evidence of free air or bowel obstruction was identified. No definite gastric abnormality was identified. No additional mass lesions, organomegaly or free fluid collections were identified in the abdomen or pelvis. A mild dextroconcave scoliosis of the lumbar spine is noted with evidence of progressive hypertrophic degenerative changes and disk disease in the thoracolumbosacral spine, most severe disk disease being at the L3 through S1 levels with very flattened disk spaces at those levels, but also fairly severe at L2-3 and with vacuum disk phenomena at lower thoracic and mid thoracic levels. IMPRESSION: 1. Increased size of a probable simple cyst of the upper pole posterior cortex of the right kidney, partially exophytic now measuring 23 mm compared with 17 mm in 2010. 2. Bilateral moderately large pleural effusions with some parenchymal changes at the lung bases could be on the basis of pneumonia and pleuritis, but should be correlated clinically. 3. ASHD with cardiomegaly. 4. Limited abdominal ascites limited to the subdiaphragmatic areas and extending into the paracolic gutters somewhat most prominent about the liver. 5. ASD. 6. Post appendectomy. 7. Hypertrophic degenerative changes disk disease thoracolumbosacral spine. Report was called to Dr. Burrell at 1549 hours. [facility]
[2020-07-21] MEDS: Diltiazem 120 MG Cap.CD PO SCH (08:54)
[2020-07-21] MEDS: Metoprolol Tartrate 50 MG Tab PO SCH ×2 (08:55→20:58)
[2020-07-21] MEDS: atorvaSTATin 40 MG Tab PO SCH (08:55)
[2020-07-21] MEDS: Furosemide 20 MG Tab PO SCH (08:59)
[2020-07-21] MEDS: Gabapentin 300 MG Cap PO SCH (08:59)
[2020-07-21] MEDS: Sodium Chloride 0.9% 10 ML Syringe FLUSH PRN ×3 (09:00→14:19)
[2020-07-21] MEDS: Sodium Chloride 0.9% 250 ML IV SCH ×3 (09:15→13:30)
[2020-07-21] MEDS: Sodium Chloride 0.9% 1,000 ML IV SCH (09:34)
--- NOTE | 2020-07-21 12:09 | PCM.CONS ---
H&P History of Present Illness - General Date of Service: 07/21/20 Admit Problem/Dx: Patient states he may have a little abdominal pain but is not sure. He is very demented. He does not know aureus had at this point. He denies fevers, chills, cough, chest pain. He stated last night he has had some bloody stools. - History of Present Illness Initial Comments - Free Text/Narative: 84 yo wm who was admitted after a fall at his assisted living facility. He has been noted to be anemic, with a hgb 5.2. He received some blood and on his last level had a Hgb of 6.8. Reported has had some shannon blood per rectum. He has been on Eliquis which has been held. Poor historian as he is suffering from dementia. - Related Data Allergies/Adverse Reactions: Allergies Allergy/AdvReac Type Severity Reaction Status Date / Time No Known Allergies Allergy Verified 12/02/19 13:56 Home Medications: Home Meds metFORMIN HCl [Metformin HCl] 1,000 mg PO BIDMEALS 01/23/16 [History] Donepezil [Aricept] 10 mg PO BEDTIME 12/02/19 [History] Acetaminophen 650 mg PO Q4H PRN 07/20/20 [History] Acetaminophen [Acetaminophen ER] 1,300 mg PO BID PRN 07/20/20 [History] Apixaban [Eliquis] 2.5 mg PO BID 07/20/20 [History] Aspirin [Halfprin] 81 mg PO DAILY 07/20/20 [History] Furosemide [Lasix] 20 mg PO DAILY 07/20/20 [History] Gabapentin [Neurontin] 300 mg PO DAILY 07/20/20 [History] Loperamide [Imodium] 2 mg PO ASDIRECTED PRN 07/20/20 [History] Mag Hydrox/Aluminum Hyd/Simeth [Mylanta Maximum Strength Liq] 10 ml PO QID PRN 07/20/20 [History] Magnesium Hydroxide [Milk of Magnesia] 30 ml PO DAILY PRN 07/20/20 [History] Metoprolol Tartrate [Lopressor] 50 mg PO BID 07/20/20 [History] Triamcinolone Acetonide [Triamcinolone Acetonide 0.1% Crm] 1 applic TOP TID PRN 07/20/20 [History] atorvaSTATin [Lipitor] 40 mg PO DAILY 07/20/20 [History] bisacodyL [Dulcolax] 10 mg RC Q3D PRN 07/20/20 [History] dilTIAZem HCL [Cartia Xt] 120 mg PO DAILY 07/20/20 [History] glipiZIDE [Glucotrol] 2.5 mg PO BID 07/20/20 [History] guaiFENesin [Robitussin] 200 mg PO Q4H PRN 07/20/20 [History] Past Medical History HEENT History: Reports: Epistaxis Cardiovascular History: Reports: Afib, High Cholesterol, Hypertension, [place] Gastrointestinal History: Reports: GERD Musculoskeletal History: Reports: Arthritis, Back Pain, Chronic, Osteoarthritis Psychiatric History: Reports: Dementia Endocrine/Metabolic History: Reports: Diabetes, Type II Hematologic History: Reports: Anemia - Past Surgical History HEENT Surgical History: Reports: Cataract Surgery GI Surgical History: Reports: Appendectomy, Cholecystectomy Musculoskeletal Surgical History: Reports: Shoulder Surgery Social & Family History - Family History Family Medical History: Noncontributory - Tobacco Use Tobacco Use Status *Q: Never Tobacco User - Caffeine Use Caffeine Use: Reports: Coffee - Recreational Drug Use Recreational Drug Use: No H&P Review of Systems - Review of Systems: Review Of Systems: Unable To Obtain (demented) Reason Not Obtained: dementia Exam - Exam Exam: See Below - Vital Signs Vital Signs: Last Vital Signs Temp 98.2 F 07/21/20 10:45 Pulse 92 07/21/20 10:45 Resp 16 07/21/20 10:45 BP 99/62 07/21/20 10:45 Pulse Ox 93 L 07/21/20 05:02 Weight: 86.727 kg - Exam General: Alert, Cooperative Lungs: Clear to Auscultation, Normal Respiratory Effort Cardiovascular: Regular Rate, Regular Rhythm GI/Abdominal Exam: Normal Bowel Sounds, Soft, Non-Tender - Patient Data Lab Results Last 24 hrs: Laboratory Results - last 24 hr 07/20/20 07/20/20 07/20/20 Range/Units 12:15 12:15 12:15 WBC 7.6 (4.5-12.0) X10-3/uL RBC 2.41 L (4.30-5.75) x10(6)uL Hgb 5.4 L* D (13.5-17.8) g/dL Hct 17.2 L* D (30.0-51.3) % MCV 71.3 L (80-96) fL MCH 22.3 L (27.7-33.6) pg MCHC 31.3 L (32.2-35.4) g/dL RDW 19.8 H (11.5-15.5) % Plt Count 331 (125-369) X10(3)uL MPV 6.8 L (7.4-10.4) fL Neut % (Auto) 76.0 (46-82) % Lymph % (Auto) 12.2 L (13-37) % [place] % (Auto) 9.9 (4-12) % Eos % (Auto) 1 (1.0-5.0) % Baso % (Auto) 1 (0-2) % Neut # (Auto) 5.9 (1.6-8.3) # Lymph # (Auto) 0.9 (0.6-5.0) # [place] # (Auto) 0.7 (0.0-1.3) # Eos # (Auto) 0.1 (0.0-0.8) # Baso # (Auto) 0.0 (0.0-0.2) # PT 12.7 H (9.0-11.1) sec INR 1.19 (1.00-1.24) APTT 23.1 L (24.4-33.2) SECONDS Sodium 141 (135-145) mmol/L Potassium 4.0 (3.5-5.3) mmol/L Chloride 103 (100-110) mmol/L Carbon Dioxide 27 (21-32) mmol/L BUN 47 H D (7-18) mg/dL Creatinine 1.4 H (0.70-1.30) mg/dL Est Cr Clr Drug Dosing TNP Estimated GFR (MDRD) 48 L (>60) BUN/Creatinine Ratio 33.6 H (9-20) Glucose 167 H (80-116) mg/dL POC Glucose (74-100) mg/dL Calcium 8.9 (8.6-10.2) mg/dL Total Bilirubin 0.5 (0.1-1.3) mg/dL AST 21 D (5-25) IU/L ALT 21 D (12-36) U/L Alkaline Phosphatase 105 (56-112) IU/L Troponin I (4.0-60.3) pg/mL Total Protein 6.8 (6.0-8.0) g/dL Albumin 3.1 L (3.2-4.6) g/dL Globulin 3.7 g/dL Albumin/Globulin Ratio 0.8 Blood Type Gel Antibody Screen Crossmatch 07/20/20 07/20/20 07/20/20 Range/Units 12:15 12:15 14:25 WBC (4.5-12.0) X10-3/uL RBC (4.30-5.75) x10(6)uL Hgb 5.4 L* (13.5-17.8) g/dL Hct 17.7 L* (30.0-51.3) % MCV (80-96) fL MCH (27.7-33.6) pg MCHC (32.2-35.4) g/dL RDW (11.5-15.5) % Plt Count (125-369) X10(3)uL MPV (7.4-10.4) fL Neut % (Auto) (46-82) % Lymph % (Auto) (13-37) % [place] % (Auto) (4-12) % Eos % (Auto) (1.0-5.0) % Baso % (Auto) (0-2) % Neut # (Auto) (1.6-8.3) # Lymph # (Auto) (0.6-5.0) # [place] # (Auto) (0.0-1.3) # Eos # (Auto) (0.0-0.8) # Baso # (Auto) (0.0-0.2) # PT (9.0-11.1) sec INR (1.00-1.24) APTT (24.4-33.2) SECONDS Sodium (135-145) mmol/L Potassium (3.5-5.3) mmol/L Chloride (100-110) mmol/L Carbon Dioxide (21-32) mmol/L BUN (7-18) mg/dL Creatinine (0.70-1.30) mg/dL Est Cr Clr Drug Dosing Estimated GFR (MDRD) (>60) BUN/Creatinine Ratio (9-20) Glucose (80-116) mg/dL POC Glucose (74-100) mg/dL Calcium (8.6-10.2) mg/dL Total Bilirubin (0.1-1.3) mg/dL AST (5-25) IU/L ALT (12-36) U/L Alkaline Phosphatase (56-112) IU/L Troponin I 26.7 (4.0-60.3) pg/mL Total Protein (6.0-8.0) g/dL Albumin (3.2-4.6) g/dL Globulin g/dL Albumin/Globulin Ratio Blood Type O POSITIVE Gel Antibody Screen Negative Crossmatch See Detail 07/20/20 07/20/20 07/21/20 Range/Units 17:49 23:23 00:55 WBC (4.5-12.0) X10-3/uL RBC (4.30-5.75) x10(6)uL Hgb 7.1 L (13.5-17.8) g/dL Hct 22.4 L (30.0-51.3) % MCV (80-96) fL MCH (27.7-33.6) pg MCHC (32.2-35.4) g/dL RDW (11.5-15.5) % Plt Count (125-369) X10(3)uL MPV (7.4-10.4) fL Neut % (Auto) (46-82) % Lymph % (Auto) (13-37) % [place] % (Auto) (4-12) % Eos % (Auto) (1.0-5.0) % Baso % (Auto) (0-2) % Neut # (Auto) (1.6-8.3) # Lymph # (Auto) (0.6-5.0) # [place] # (Auto) (0.0-1.3) # Eos # (Auto) (0.0-0.8) # Baso # (Auto) (0.0-0.2) # PT (9.0-11.1) sec INR (1.00-1.24) APTT (24.4-33.2) SECONDS Sodium (135-145) mmol/L Potassium (3.5-5.3) mmol/L Chloride (100-110) mmol/L Carbon Dioxide (21-32) mmol/L BUN (7-18) mg/dL Creatinine (0.70-1.30) mg/dL Est Cr Clr Drug Dosing Estimated GFR (MDRD) (>60) BUN/Creatinine Ratio (9-20) Glucose (80-116) mg/dL POC Glucose 139 H 182 H (74-100) mg/dL Calcium (8.6-10.2) mg/dL Total Bilirubin (0.1-1.3) mg/dL AST (5-25) IU/L ALT (12-36) U/L Alkaline Phosphatase (56-112) IU/L Troponin I (4.0-60.3) pg/mL Total Protein (6.0-8.0) g/dL Albumin (3.2-4.6) g/dL Globulin g/dL Albumin/Globulin Ratio Blood Type Gel Antibody Screen Crossmatch 07/21/20 07/21/20 Range/Units 04:55 04:55 WBC 8.3 (4.5-12.0) X10-3/uL RBC 2.91 L (4.30-5.75) x10(6)uL Hgb 6.8 L* (13.5-17.8) g/dL Hct 21.5 L* (30.0-51.3) % MCV 73.9 L (80-96) fL MCH 23.3 L (27.7-33.6) pg MCHC 31.5 L (32.2-35.4) g/dL RDW 20.3 H (11.5-15.5) % Plt Count 312 (125-369) X10(3)uL MPV 6.6 L (7.4-10.4) fL Neut % (Auto) 71.5 (46-82) % Lymph % (Auto) 16.6 (13-37) % [place] % (Auto) 10.3 (4-12) % Eos % (Auto) 1 (1.0-5.0) % Baso % (Auto) 0 (0-2) % Neut # (Auto) 5.9 (1.6-8.3) # Lymph # (Auto) 1.4 (0.6-5.0) # [place] # (Auto) 0.9 (0.0-1.3) # Eos # (Auto) 0.1 (0.0-0.8) # Baso # (Auto) 0.0 (0.0-0.2) # PT (9.0-11.1) sec INR (1.00-1.24) APTT (24.4-33.2) SECONDS Sodium 140 (135-145) mmol/L Potassium 3.8 (3.5-5.3) mmol/L Chloride 103 (100-110) mmol/L Carbon Dioxide 31 (21-32) mmol/L BUN 50 H (7-18) mg/dL Creatinine 1.2 (0.70-1.30) mg/dL Est Cr Clr Drug Dosing 43.54 Estimated GFR (MDRD) 58 L (>60) BUN/Creatinine Ratio 41.7 H (9-20) Glucose 101 (80-116) mg/dL POC Glucose (74-100) mg/dL Calcium 8.5 L (8.6-10.2) mg/dL Total Bilirubin 0.9 (0.1-1.3) mg/dL AST 18 D (5-25) IU/L ALT 22 (12-36) U/L Alkaline Phosphatase 95 (56-112) IU/L Troponin I (4.0-60.3) pg/mL Total Protein 6.6 (6.0-8.0) g/dL Albumin 3.1 L (3.2-4.6) g/dL Globulin 3.5 g/dL Albumin/Globulin Ratio 0.9 Blood Type Gel Antibody Screen Crossmatch Result Diagrams: 07/21/20 04:55 07/21/20 04:55 Kalpesh Results Last 24 hrs: Microbiology 07/20/20 14:10 Stool Occult Blood (KALPES[facility]) - Final Stool / Feces Sepsis Event Note - Evaluation Sepsis Screening Result: No Definite Risk - Focused Exam Vital Signs: Vital Signs Temp Temp Pulse Pulse Resp BP BP 07/21/20 10:45 98.2 F 92 16 99/62 07/21/20 10:35 98.7 F 97 16 95/58 L 07/21/20 08:55 124 H 125/70 07/21/20 08:54 124 H 125/70 07/21/20 05:02 97.6 F 16 Pulse Ox 07/21/20 10:45 07/21/20 10:35 07/21/20 08:55 07/21/20 08:54 07/21/20 05:02 93 L *Q Meaningful Use (ADM) - VTE *Q VTE Pharmacological Contraindications *Q: Risk of Bleeding Consult PN Assessment/Plan Procedures: Procedures ASSAY OF MAGNESIUM (12/02/19) ASSAY OF NATRIURETIC PEPTIDE (12/02/19) ASSAY OF TROPONIN QUANT (12/02/19) COMPLETE CBC W/AUTO DIFF WBC (12/02/19) COMPREHEN METABOLIC PANEL (12/02/19) CONTROL OF NOSEBLEED (01/23/16) CT HEAD/BRAIN W/O DYE (06/07/15) ELECTROCARDIOGRAM TRACING (12/02/19) EMERGENCY DEPT VISIT (12/02/19) EMERGENCY DEPT VISIT (05/16/18) HEMATOCRIT (01/23/16) OT EVAL MOD COMPLEX 45 MIN (01/11/17) PROTHROMBIN TIME (12/02/19) ROUTINE VENIPUNCTURE (12/02/19) THER/PROPH/DIAG IV INF INIT (12/02/19) THERAPEUTIC EXERCISES (01/11/17) THROMBOPLASTIN TIME PARTIAL (12/02/19) TX/PRO/DX INJ NEW DRUG ADDON (12/02/19) TX/PRO/DX INJ SAME DRUG GLASS BULB SILVERER (12/02/19) URINALYSIS AUTO W/SCOPE (05/16/18) X-RAY EXAM CHEST 1 VIEW (12/02/19) (1) GI bleed SNOMED Code(s): 42081113 Code(s): K92.2 - GASTROINTESTINAL HEMORRHAGE, UNSPECIFIED Current Visit: Yes Qualifiers: GI bleed type/associated pathology: unspecified gastrointestinal hemorrhage type Qualified Code(s): K92.2 - Gastrointestinal hemorrhage, unspecified Problem List Initiated/Reviewed/Updated: Yes Plan: recommend a c scope. discussed his poa the risks involved with the procedure. to include bleeding infection, perforation. expressed understanding and asks to proceed. Witnessed Liliana West RN
[2020-07-21] MEDS ORDERED: Polyethylene Glycol 3350 Powder 238 GM Bot PO ONE (12:11)
[2020-07-21] MEDS: Metoclopramide 5 MG Tab PO SCH ×3 (14:00→20:58)
[2020-07-21] MEDS: Pantoprazole 40 MG Vial IVPUSH SCH (14:08)
[2020-07-21] MEDS: Donepezil 10 MG Tab PO SCH (20:58)
[2020-07-22] MEDS: Sodium Chloride 0.9% 1,000 ML IV SCH ×3 (04:42→23:16)
--- NOTE | 2020-07-22 08:06 | PCM.PN ---
- General Info Date of Service: 07/22/20 Admission Dx/Problem (Free Text): [place] without complaints. Denies chest pain, shortness of breath, fevers or chills.. Denies abdominal pain. - Patient Data Vitals - Most Recent: Last Vital Signs Temp 97.6 F 07/22/20 00:00 Pulse 122 H 07/22/20 00:00 Resp 16 07/22/20 00:00 BP 132/76 07/22/20 00:00 Pulse Ox 95 07/22/20 00:00 Weight - Most Recent: 191 lb 3.2 oz I&O - Last 24 Hours: Intake & Output 07/21/20 07/22/20 07/22/20 22:59 06:59 14:59 Intake Total 1927 720 Output Total 1300 400 475 Balance 627 320 -475 Lab Results Last 24 Hours: Laboratory Results - last 24 hr 07/20/20 07/21/20 07/21/20 Range/Units 12:15 18:10 20:03 WBC (4.5-12.0) X10-3/uL RBC (4.30-5.75) x10(6)uL Hgb 9.3 L (13.5-17.8) g/dL Hct 28.4 L (30.0-51.3) % MCV (80-96) fL MCH (27.7-33.6) pg MCHC (32.2-35.4) g/dL RDW (11.5-15.5) % Plt Count (125-369) X10(3)uL MPV (7.4-10.4) fL Neut % (Auto) (46-82) % Lymph % (Auto) (13-37) % [place] % (Auto) (4-12) % Eos % (Auto) (1.0-5.0) % Baso % (Auto) (0-2) % Neut # (Auto) (1.6-8.3) # Lymph # (Auto) (0.6-5.0) # [place] # (Auto) (0.0-1.3) # Eos # (Auto) (0.0-0.8) # Baso # (Auto) (0.0-0.2) # POC Glucose 186 H (74-100) mg/dL Blood Type O POSITIVE Gel Antibody Screen Negative Crossmatch See Detail 07/21/20 07/22/20 07/22/20 Range/Units 22:10 02:05 05:44 WBC (4.5-12.0) X10-3/uL RBC (4.30-5.75) x10(6)uL Hgb 9.0 L 8.5 L (13.5-17.8) g/dL Hct (30.0-51.3) % MCV (80-96) fL MCH (27.7-33.6) pg MCHC (32.2-35.4) g/dL RDW (11.5-15.5) % Plt Count (125-369) X10(3)uL MPV (7.4-10.4) fL Neut % (Auto) (46-82) % Lymph % (Auto) (13-37) % [place] % (Auto) (4-12) % Eos % (Auto) (1.0-5.0) % Baso % (Auto) (0-2) % Neut # (Auto) (1.6-8.3) # Lymph # (Auto) (0.6-5.0) # [place] # (Auto) (0.0-1.3) # Eos # (Auto) (0.0-0.8) # Baso # (Auto) (0.0-0.2) # POC Glucose 117 H (74-100) mg/dL Blood Type Gel Antibody Screen Crossmatch 07/22/20 07/22/20 Range/Units 06:20 06:20 WBC 9.7 (4.5-12.0) X10-3/uL RBC 3.34 L (4.30-5.75) x10(6)uL Hgb Cancelled 8.5 L (13.5-17.8) g/dL Hct 26.3 L (30.0-51.3) % MCV 78.8 L (80-96) fL MCH 25.2 L (27.7-33.6) pg MCHC 31.9 L (32.2-35.4) g/dL RDW 23.2 H (11.5-15.5) % Plt Count 260 (125-369) X10(3)uL MPV 7.0 L (7.4-10.4) fL Neut % (Auto) 77.7 (46-82) % Lymph % (Auto) 11.9 L (13-37) % [place] % (Auto) 9.0 (4-12) % Eos % (Auto) 1 (1.0-5.0) % Baso % (Auto) 0 (0-2) % Neut # (Auto) 7.6 (1.6-8.3) # Lymph # (Auto) 1.1 (0.6-5.0) # [place] # (Auto) 0.9 (0.0-1.3) # Eos # (Auto) 0.1 (0.0-0.8) # Baso # (Auto) 0.0 (0.0-0.2) # POC Glucose (74-100) mg/dL Blood Type Gel Antibody Screen Crossmatch Med Orders - Current: Current Medications Acetaminophen (Tylenol) 650 mg PO Q4H PRN PRN Reason: Pain/Fever Acetaminophen (Tylenol Arthritis Pain) 1,300 mg PO BID PRN PRN Reason: OSTEOARTHRITIS PAIN Atorvastatin Calcium (Lipitor) 40 mg PO DAILY [facility] Last Admin: 07/21/20 08:55 Dose: 40 mg Documented by: Bisacodyl (Dulcolax) 10 mg RECTAL Q3D PRN PRN Reason: Constipation Diltiazem HCl (Cardizem Cd) 120 mg PO DAILY [facility] Last Admin: 07/21/20 08:54 Dose: 120 mg Documented by: Donepezil HCl (Aricept) 10 mg PO BEDTIME [facility] Last Admin: 07/21/20 20:58 Dose: 10 mg Documented by: Furosemide (Lasix) 20 mg PO DAILY [facility] Last Admin: 07/21/20 08:59 Dose: 20 mg Documented by: Gabapentin (Neurontin) 300 mg PO DAILY [facility] Last Admin: 07/21/20 08:59 Dose: 300 mg Documented by: Glipizide (Glucotrol) 2.5 mg PO BIDAC [facility] Last Admin: 07/21/20 06:38 Dose: 2.5 mg Documented by: Guaifenesin (Robitussin) 200 mg PO Q4H PRN PRN Reason: Cough Sodium Chloride (Normal Saline) 250 mls @ 100 mls/hr IV ASDIRECTED [facility] Last Admin: 07/21/20 13:30 Dose: 100 mls/hr Documented by: Sodium Chloride (Normal Saline) 1,000 mls @ 75 mls/hr IV ASDIRECTED [facility] Last Admin: 07/22/20 04:42 Dose: 100 mls/hr Documented by: Sodium Chloride (Normal Saline) 250 mls @ 100 mls/hr IV ASDIRECTED [facility] Last Admin: 07/21/20 13:30 Dose: 100 mls/hr Documented by: Loperamide HCl (Imodium) 2 mg PO ASDIRECTED PRN PRN Reason: Diarrhea Magnesium Hydroxide (Milk Of Magnesia) 30 ml PO DAILY PRN PRN Reason: Constipation Metoprolol Tartrate (Lopressor) 50 mg PO BID [facility] Last Admin: 07/21/20 20:58 Dose: 50 mg Documented by: Ondansetron HCl (Zofran) 4 mg IVPUSH Q6H PRN PRN Reason: Nausea/Vomiting Last Admin: 07/20/20 23:42 Dose: 4 mg Documented by: Pantoprazole Sodium (Protonix Iv) 40 mg IVPUSH DAILY [facility] Last Admin: 07/21/20 14:08 Dose: 40 mg Documented by: Sodium Chloride (Saline Flush) 10 ml FLUSH ASDIRECTED PRN PRN Reason: saline lock flush Last Admin: 07/21/20 14:19 Dose: 10 ml Documented by: Triamcinolone Acetonide (Triamcinolone Acetonide 0.1% Crm) 0 gm TOP TID PRN PRN Reason: Rash Discontinued Medications Al Hydroxide/Mg Hydroxide (Mag-Al Susp) 10 ml PO QID PRN PRN Reason: Indigestion Diatrizoate Meglum/Diatrizoate Sod (Gastrografin 37%) 30 ml PO . DIRECTED ONE Stop: 07/20/20 13:51 Last Admin: 07/20/20 14:47 Dose: 30 ml Documented by: Furosemide (Lasix) 20 mg IVPUSH ONETIME ONE Stop: 07/20/20 18:01 Last Admin: 07/20/20 17:59 Dose: 20 mg Documented by: Iopamidol (Isovue-370 (76%)) 100 ml IV . DIRECTED ONE Stop: 07/20/20 13:51 Last Admin: 07/20/20 14:47 Dose: 100 ml Documented by: Metoclopramide HCl (Reglan) 5 mg PO QIDACANDBED ALICE Stop: 07/22/20 07:00 Last Admin: 07/21/20 20:58 Dose: 5 mg Documented by: Ondansetron HCl (Zofran) 8 mg IVPUSH Q6H PRN PRN Reason: Nausea/Vomiting Polyethylene Glycol (Miralax) 238 gm PO ONETIME ONE Stop: 07/21/20 12:12 Last Admin: 07/21/20 15:00 Dose: 238 gm Documented by: - Exam General: Alert, Cooperative. No: Oriented Lungs: Clear to Auscultation, Normal Respiratory Effort Cardiovascular: Regular Rhythm, No Murmurs, Tachycardia GI/Abdominal Exam: Normal Bowel Sounds, Soft, Non-Tender, No Distention Sepsis Event Note - Evaluation Sepsis Screening Result: No Definite Risk - Focused Exam Vital Signs: Vital Signs Temp Pulse Pulse Resp BP BP Pulse Ox 07/22/20 00:00 97.6 F 122 H 16 132/76 95 07/21/20 20:58 104 H 121/56 L - Problem List & Annotations (1) Facial contusion SNOMED Code(s): 516596362 Code(s): S00.83XA - CONTUSION OF OTHER PART OF HEAD, INITIAL ENCOUNTER Status: Acute Current Visit: Yes (2) Fall SNOMED Code(s): 4563644, 157584997 Code(s): W19.XXXA - UNSPECIFIED FALL, INITIAL ENCOUNTER Status: Acute Current Visit: Yes (3) Memory loss SNOMED Code(s): 96753767 Code(s): R41.3 - OTHER AMNESIA Status: Acute Current Visit: Yes (4) Microcytic anemia SNOMED Code(s): 676752116 Code(s): D50.9 - IRON DEFICIENCY ANEMIA, UNSPECIFIED Status: Acute Current Visit: Yes (5) Palliative care status SNOMED Code(s): 130491971 Code(s): Z51.5 - ENCOUNTER FOR PALLIATIVE CARE Status: Acute Current Visit: Yes (6) GI bleed SNOMED Code(s): 52587445 Code(s): K92.2 - GASTROINTESTINAL HEMORRHAGE, UNSPECIFIED Status: Acute Current Visit: Yes Qualifiers: GI bleed type/associated pathology: unspecified gastrointestinal hemorrhage type Qualified Code(s): K92.2 - Gastrointestinal hemorrhage, unspecified (7) Dementia SNOMED Code(s): 34784073 Code(s): F03.90 - UNSPECIFIED DEMENTIA WITHOUT BEHAVIORAL DISTURBANCE Status: Acute Current Visit: Yes - Problem List Review Problem List Initiated/Reviewed/Updated: Yes - My Orders Last 24 Hours: My Active Orders 07/21/20 08:00 Remove Garcia Catheter [Urinary Catheter Removal] [RC] PER UNIT ROUTINE 07/21/20 08:11 Transfuse RBC [Transfuse Red Blood Cells] [COMM] Urgent 07/21/20 08:12 Notify Provider Consults [RC] ASDIRECTED Consult to Physician [CONS] Routine 07/21/20 08:15 Sodium Chloride 0.9% [Normal Saline] 250 ml IV ASDIRECTED 07/21/20 13:45 Pantoprazole [ProTONIX IV] 40 mg IVPUSH DAILY 07/21/20 14:11 Sodium Chloride 0.9% [Saline Flush] 10 ml FLUSH ASDIRECTED PRN - Plan Plan:: 1. Colonoscopy today. Watch hemoglobin to make sure it does not continue to try
[2020-07-22] MEDS ORDERED: Propofol 200 MG/20 ML SDV IV ONE (08:25)
[2020-07-22] MEDS ORDERED: Ketamine 500 mg/10 ML MDV IV ONE (08:25)
--- NOTE | 2020-07-22 08:26 | PCM.OPNOTE ---
- General Post-Op/Procedure Note Date of Surgery/Procedure: 07/22/20 Operative Procedure(s): c scope with hot loop snare Findings: descending colon polyp Pre Op Diagnosis: anemia heme + stools Post-Op Diagnosis: colon polyp Anesthesia Technique: MAC Primary Surgeon: Cliff Wright Anesthesia Provider: Bozena Avila Pathology: colon polyp Complications: None Condition: Stable Free Text/Narrative:: Intake & Output 07/21/20 07/22/20 07/22/20 22:59 06:59 14:59 Intake Total 1927 720 Output Total 1300 400 475 Balance 627 320 -475 see dictation
[2020-07-22] MEDS: Diltiazem 120 MG Cap.CD PO SCH (09:28)
[2020-07-22] MEDS: Furosemide 20 MG Tab PO SCH (09:29)
[2020-07-22] MEDS: Pantoprazole 40 MG Vial IVPUSH SCH (09:29)
[2020-07-22] MEDS: atorvaSTATin 40 MG Tab PO SCH (09:29)
[2020-07-22] MEDS: Gabapentin 300 MG Cap PO SCH (09:29)
[2020-07-22] MEDS: Metoprolol Tartrate 50 MG Tab PO SCH ×2 (09:29→20:15)
--- NOTE | 2020-07-22 10:53 | OR ---
DATE OF OPERATION: 07/22/2020 SURGEON: Cliff Wright MD PROCEDURES PERFORMED: 1. Colonoscopy. 2. Hot loop snare biopsy. PREOPERATIVE DIAGNOSES: 1. Guaiac-positive stools. 2. History of anemia. POSTOPERATIVE DIAGNOSIS: Descending colon polyp. INDICATIONS FOR PROCEDURE: This is an 84-year-old white male, who was referred with a history of some anemia and was noted to be guaiac positive, really had no GI complaints. He was offered and accepted a colonoscopy. DESCRIPTION OF OPERATION: After an excellent IV sedation was administered, a digital rectal exam was performed. No marked abnormality was noted. A flexible colonoscope was inserted and advanced to the cecum. The prep was good. There were a couple of areas that we needed to irrigate. We got an excellent view of the mucosa. The following findings were noted. The ascending colon was unremarkable. The transverse colon was unremarkable. Descending colon, a small polypoid lesion, biopsied with the hot loop snare and submitted in a single container. The sigmoid and rectum were unremarkable. Retroflexion of the scope, there was really no evidence of any significant hemorrhoids to explain his anemia. The specimen was submitted. The results will be sent by a letter. /[id number] /MODL
[2020-07-22] MEDS ORDERED: Glucagon,Human Recombinant 1 MG Vial IM PRN (19:19)
[2020-07-22] MEDS ORDERED: 50% Dextrose in Water 50 ML Syringe IVPUSH PRN (19:19)
[2020-07-22] MEDS ORDERED: Insulin Lispro 100 Unit/ML 3 ML KwikPen SUBCUT ONE ×2 (19:20→19:41)
[2020-07-22] MEDS: Acetaminophen 325 MG Tab PO PRN (19:52)
[2020-07-22] MEDS: Sodium Chloride 0.9% 250 ML IV SCH (20:12)
[2020-07-22] MEDS: Donepezil 10 MG Tab PO SCH (20:15)
[2020-07-23] MEDS: Insulin Lispro 100 Unit/ML 3 ML KwikPen SUBCUT SCH ×2 (06:14→08:31)
[2020-07-23] MEDS: Metoprolol Tartrate 50 MG Tab PO SCH ×2 (08:32→20:38)
[2020-07-23] MEDS: Furosemide 20 MG Tab PO SCH (08:32)
[2020-07-23] MEDS: Pantoprazole 40 MG Vial IVPUSH SCH (08:32)
[2020-07-23] MEDS: atorvaSTATin 40 MG Tab PO SCH (08:32)
[2020-07-23] MEDS: Diltiazem 120 MG Cap.CD PO SCH (08:33)
--- NOTE | 2020-07-23 11:38 | PN ---
DATE SEEN: 07/23/2020 HISTORY: Rogelio is an 84-year-old man who came in after a fall. He was sitting in a recliner and then fell face down onto the floor. He had been having weakness and dark stools. He has a history of atrial fibrillation, on Eliquis and aspirin. On admission, his hemoglobin was 5.4. Over the last 48 hours, he has been transfused a total of 5 units of packed red blood cells. A colonoscopy done by Dr. Wright was negative. He is getting IV Protonix. OBJECTIVE: GENERAL: This morning, he is examined sitting in his chair. He is slightly confused. He has dry abrasions over his nose and forehead. LUNGS: Clear. HEART: Regular. Slightly tachycardic. ABDOMEN: Normal bowel sounds. Soft. He does report mild tenderness in the epigastric area. No mass, guarding, or rebound is present. EXTREMITIES: Show trace edema at the ankles. NEUROLOGIC: Reveals him to be confused but up walking symmetrically. LABORATORY DATA: Hemoglobin 9.1. Accu-Chek 117. ASSESSMENT: 1. Fall secondary to weakness and hypotension due to anemia from gastrointestinal bleed, likely gastric ulcer. 2. History of atrial fibrillation, on anticoagulation. 3. Type 2 diabetes. PLAN: We will continue oral pantoprazole, his oral glipizide, and his diltiazem and metoprolol for atrial fibrillation as well as his Aricept for his dementia. We will not resume full anticoagulation because of this bleed and the subsequent risk. We will recheck his hemoglobin this afternoon, and once stable, he may be returned to [facility]. We will continue to provide palliative care measures for his underlying dementia and other medical problems. /[id number] [place]/LISANDRA
[2020-07-23] MEDS: glipiZIDE 5 MG Tab PO SCH (17:28)
[2020-07-23] MEDS: Donepezil 10 MG Tab PO SCH (20:37)
[2020-07-23] MEDS: Acetaminophen 325 MG Tab PO PRN (22:37)
[2020-07-24] MEDS ORDERED: Pantoprazole 40 MG Tab.CR PO SCH (06:00)
[2020-07-24] MEDS: glipiZIDE 5 MG Tab PO SCH (06:37)
[2020-07-24] MEDS: Diltiazem 120 MG Cap.CD PO SCH (09:28)
[2020-07-24] MEDS: Furosemide 20 MG Tab PO SCH (09:28)
[2020-07-24 09:29] VITALS: BP 115/58; PULSE 125
[2020-07-24] MEDS: Metoprolol Tartrate 50 MG Tab PO SCH (09:29)
--- NOTE | 2020-07-26 07:12 | DISCH ---
DISCHARGE DATE: 07/24/2020 PRIMARY FINAL DIAGNOSIS: Upper gastrointestinal bleed with severe anemia. OTHER DIAGNOSES: Chronic atrial fibrillation, on anticoagulation; dementia; chronic congestive heart failure; type 2 diabetes; hypertension; hyperlipidemia. OPERATIONS: None. COMPLICATIONS: The patient was treated with 5 units of blood transfusion. He had lower GI colonoscopy that was unremarkable. He was treated with IV Protonix and his hemoglobin stabilized. SUMMARY: Mr. Desai is an 84-year-old resident of [facility] with dementia, atrial fibrillation with anticoagulation, and the above medical problems. He fell forward causing a facial abrasion and extreme weakness. He was brought to the ER where he was found to have a hemoglobin of just over 5. He was admitted for acute anemia. Hemoccult stool was positive, colonoscopy was negative, and his source of bleeding was assumed to be the stomach or the upper GI tract. His Eliquis was discontinued on admission. His hemoglobin stabilized, and by 07/24/2020, he was deemed strong enough for return to the [facility]. MEDICATIONS: He was discharged on the following medications: 1. Metformin 1000 mg b.i.d. p.r.n. 2. Milk of magnesia p.r.n. 3. Mylanta p.r.n. 4. Imodium p.r.n. 5. Guaifenesin p.r.n. 6. Gabapentin 300 mg daily. 7. Dulcolax suppository p.r.n. every 3 days. 8. Atorvastatin 40 mg daily. 9. Aspirin 81 mg daily. 10.Triamcinolone acetonide cream t.i.d. p.r.n. 11.Protonix 40 mg daily. 12.Metoprolol 50 mg b.i.d. 13.Glipizide 2.5 mg b.i.d. 14.Furosemide 20 mg daily. 15.Aricept 10 mg at bedtime. 16.Diltiazem ER 120 mg daily. 17.Tylenol 1300 mg b.i.d. and 650 mg p.r.n. 18.Iron sulfate 325 mg b.i.d. FOLLOWUP: He is to have follow up with his regular physician on a p.r.n. basis and repeat lab work in 2 weeks. /[id number] [place]/LISANDRA
== END 2020-07-24 14:00 | disposition other institution (70) | DRG 811 ==
LOC: FB.ED 11:26 → FB.MS 14:13
PROVIDERS: ADMIT Emergency Medicine; ATTEND Family Medicine
PROC: 30233N1 Transfusion of Nonautologous Red Blood Cells into Peripheral Vein, Percutaneous Approach (ICD-10-PCS; 2020-07-20)
PROC: 0DBK8ZX Excision of Ascending Colon, Via Natural or Artificial Opening Endoscopic, Diagnostic (ICD-10-PCS; principal; 2020-07-22)
DX: D64.9 Anemia, unspecified (principal); S09.90XA Unspecified injury of head, initial encounter; S00.81XA Abrasion of other part of head, initial encounter; K25.4 Chronic or unspecified gastric ulcer with hemorrhage; I48.91 Unspecified atrial fibrillation; I48.20 Chronic atrial fibrillation, unspecified; R19.5 Other fecal abnormalities; K63.5 Polyp of colon; Z51.5 Encounter for palliative care; K21.9 Gastro-esophageal reflux disease without esophagitis; Z66 Do not resuscitate; S00.83XA Contusion of other part of head, initial encounter; R41.3 Other amnesia; F03.90 Unspecified dementia, unspecified severity, without behavioral disturbance, psychotic disturbance, mood disturbance, and anxiety; M19.90 Unspecified osteoarthritis, unspecified site; M54.9 Dorsalgia, unspecified; G89.29 Other chronic pain; E11.9 Type 2 diabetes mellitus without complications; I10 Essential (primary) hypertension; E78.00 Pure hypercholesterolemia, unspecified; I25.2 Old myocardial infarction; Z98.49 Cataract extraction status, unspecified eye; Z90.49 Acquired absence of other specified parts of digestive tract; Z79.899 Other long term (current) drug therapy; Z79.84 Long term (current) use of oral hypoglycemic drugs; Z79.82 Long term (current) use of aspirin; Z79.01 Long term (current) use of anticoagulants; W07.XXXA Fall from chair, initial encounter
CPT/HCPCS: 36415; 70450; 70486; 72125; 80053; 82272; 84484; 85025; 85610; 85730; 86850; 86900; 86901; 86920 ×3; 86922 ×3; 93005; 99285; Q9963; 00811-QZ; 36430; 51701; 51702; 74177; 81001; 82947; 82962; 85014; 85018; 87040; 87086; 87088; 87186; A9270-GY; C9113; J1815; J1940; J2405; J2704; J7030; J7050; P9016; Q9967

== ENCOUNTER 2021-03-22 02:35 | Emergency (ER) | payer MEDICARE, OTHER ==
[2021-03-22 03:26] VITALS: BP 153/94; PULSE 105
--- NOTE | 2021-03-22 04:58 | EDM.PDOC ---
ED HPI GENERAL MEDICAL PROBLEM - General Chief Complaint: Head Injury Stated Complaint: LACERATION ON HEAD Time Seen by Provider: 03/22/21 02:55 Source of Information: Reports: Patient, RN History Limitations: Reports: No Limitations - History of Present Illness INITIAL COMMENTS - FREE TEXT/NARRATIVE: Rogelio was brought [facility] home after a fall. He fell in the bath room,and hit his head,and scrapped his knees. He had no complains.No LOC.No vomiting or seizure. He takes ASA. - Related Data Allergies Allergy/AdvReac Type Severity Reaction Status Date / Time No Known Allergies Allergy Verified 03/22/21 04:05 Home Meds: Home Meds metFORMIN HCl [Metformin HCl] 1,000 mg PO BIDMEALS 01/23/16 [History] Donepezil [Aricept] 10 mg PO BEDTIME 12/02/19 [History] Acetaminophen 650 mg PO Q4H PRN 07/20/20 [History] Acetaminophen [Acetaminophen ER] 1,300 mg PO BID PRN 07/20/20 [History] Aspirin [Halfprin] 81 mg PO DAILY 07/20/20 [History] Furosemide [Lasix] 20 mg PO DAILY 07/20/20 [History] Gabapentin [Neurontin] 300 mg PO DAILY 07/20/20 [History] Loperamide [Imodium] 2 mg PO ASDIRECTED PRN 07/20/20 [History] Mag Hydrox/Aluminum Hyd/Simeth [Mylanta Maximum Strength Liq] 10 ml PO QID PRN 07/20/20 [History] Magnesium Hydroxide [Milk of Magnesia] 30 ml PO DAILY PRN 07/20/20 [History] Metoprolol Tartrate [Lopressor] 50 mg PO BID 07/20/20 [History] Triamcinolone Acetonide [Triamcinolone Acetonide 0.1% Crm] 1 applic TOP TID PRN 07/20/20 [History] atorvaSTATin [Lipitor] 40 mg PO DAILY 07/20/20 [History] bisacodyL [Dulcolax] 10 mg RC Q3D PRN 07/20/20 [History] dilTIAZem HCL [Cartia Xt] 120 mg PO DAILY 07/20/20 [History] glipiZIDE [Glucotrol] 2.5 mg PO BID 07/20/20 [History] guaiFENesin [Robitussin] 200 mg PO Q4H PRN 07/20/20 [History] Ferrous Sulfate 325 mg PO BID #60 tablet 07/24/20 [Rx] Pantoprazole [ProTONIX] 40 mg PO 0600 #30 tab.cr 07/24/20 [Rx] Carbamide Peroxide [Debrox 6.5% Otic Soln] 5 ml OT PRN 03/22/21 [History] Citalopram Hydrobromide [Celexa] 20 mg PO DAILY 03/22/21 [History] Past Medical History HEENT History: Reports: Epistaxis Cardiovascular History: Reports: Afib, High Cholesterol, Hypertension, [place] Gastrointestinal History: Reports: GERD Musculoskeletal History: Reports: Arthritis, Back Pain, Chronic, Osteoarthritis Psychiatric History: Reports: Dementia Endocrine/Metabolic History: Reports: Diabetes, Type II Hematologic History: Reports: Anemia - Past Surgical History HEENT Surgical History: Reports: Cataract Surgery GI Surgical History: Reports: Appendectomy, Cholecystectomy Musculoskeletal Surgical History: Reports: Shoulder Surgery Social & Family History - Family History Family Medical History: No Pertinent Family History - Tobacco Use Tobacco Use Status *Q: Unknown Ever Used Tobacco Second Hand Smoke Exposure: No - Caffeine Use Caffeine Use: Reports: Coffee Caffeine Use Comment: with meals - Recreational Drug Use Recreational Drug Use: No ED ROS GENERAL - Review of Systems Review Of Systems: Comprehensive ROS is negative, except as noted in HPI. ED EXAM, HEAD INJURY - Physical Exam Exam: See Below Exam Limited By: No Limitations General Appearance: Alert Head: Scalp Swelling. No: Quiles's Sign, Facial Tenderness Nexus Criteria: No: Posterior, Midline Cervical Tenderness, Evidence of Intoxication, Altered Level of Consciousness, Focal Neurological Deficit, Painful Distraction Injuries Neck: Non-Tender, Full Range of Motion Respiratory: No Respiratory Distress, Lungs Clear Neurologic: facilities and grounds director II-XII nml As Tested, No Motor/Sensory Deficits Skin: Normal Color - Driss Coma Score Best Eye Response (Driss): (4) Open Spontaneously Best Verbal Response ([place]): (5) Oriented Best Motor Response (Driss): (6) Obeys Commands Course - Vital Signs Last Recorded V/S: Last Vital Signs Temp 98.2 F 03/22/21 02:40 Pulse 105 H 03/22/21 03:10 Resp 16 03/22/21 03:10 BP 153/94 H 07/06/21 03:10 Pulse Ox 94 L 03/22/21 03:10 Departure - Departure Time of Disposition: 03:05 Disposition: DC/[facility]fer to [facility] Clinical Impression: Fall - Discharge Information Instructions: Head Injury, Adult Referrals: PCP,None [Primary Care Provider] - Forms: ED Department Discharge Care Plan Goals: Examined by Dr. Geller in the ER on 03-22-21. See handout regards to Head Injury. Watch patient for signs of increased confusion, somnolence, nausea and vomiting, or headache. Return to clinic or ER as needed. Sepsis Event Note (ED) - Evaluation Sepsis Screening Result: No Definite Risk - Focused Exam Vital Signs: Vital Signs Temp Pulse Resp BP Pulse Ox 03/22/21 03:10 105 H 16 153/94 H 94 L 03/22/21 02:40 98.2 F 105 H 16 153/94 H 94 L - Problem List & Annotations (1) Fall SNOMED Code(s): 1010786, 201204115 Code(s): W19.XXXA - UNSPECIFIED FALL, INITIAL ENCOUNTER Status: Acute Qualifiers: Encounter type: initial encounter Qualified Code(s): W19.XXXA - Unspecified fall, initial encounter - Problem List Review Problem List Initiated/Reviewed/Updated: Yes - Assessment/Plan Plan: Apart from the small abrasions of the knee,and small hematoma of the scalp,no other injuries were visible. No focal deficits. I felt no need for CT scan,based on [place] CT scan rules. DC home. Return PRN
== END 2021-03-22 03:43 ==
LOC: FB.ED 02:35
DX: S00.03XA Contusion of scalp, initial encounter (principal); S80.211A Abrasion, right knee, initial encounter; S80.212A Abrasion, left knee, initial encounter; I48.91 Unspecified atrial fibrillation; E78.00 Pure hypercholesterolemia, unspecified; I10 Essential (primary) hypertension; I25.2 Old myocardial infarction; K21.9 Gastro-esophageal reflux disease without esophagitis; M19.90 Unspecified osteoarthritis, unspecified site; F03.90 Unspecified dementia, unspecified severity, without behavioral disturbance, psychotic disturbance, mood disturbance, and anxiety; D64.9 Anemia, unspecified; E11.9 Type 2 diabetes mellitus without complications; Z79.82 Long term (current) use of aspirin; Z79.84 Long term (current) use of oral hypoglycemic drugs; Z79.899 Other long term (current) drug therapy; W18.30XA Fall on same level, unspecified, initial encounter; Y92.002 Bathroom of unspecified non-institutional (private) residence as the place of occurrence of the external cause
CPT/HCPCS: 99284

== ENCOUNTER 2021-04-28 23:18 | Emergency (ER) | payer MEDICARE, OTHER ==
--- NOTE | 2021-04-28 23:58 | EDM.PDOC ---
ED HPI GENERAL MEDICAL PROBLEM - General Stated Complaint: FALL Time Seen by Provider: 04/28/21 23:25 Source of Information: Reports: Patient - History of Present Illness INITIAL COMMENTS - FREE TEXT/NARRATIVE: c/o fall from [facility], fell in his room, pt says "the room is too small" no illness per pt or staff, at baseline health, ate his supper in good spirits and joking here - Related Data Allergies Allergy/AdvReac Type Severity Reaction Status Date / Time No Known Allergies Allergy Verified 03/22/21 04:05 Home Meds: Home Meds metFORMIN HCl [Metformin HCl] 1,000 mg PO BIDMEALS 01/23/16 [History] Donepezil [Aricept] 10 mg PO BEDTIME 12/02/19 [History] Acetaminophen 650 mg PO Q4H PRN 07/20/20 [History] Acetaminophen [Acetaminophen ER] 1,300 mg PO BID PRN 07/20/20 [History] Aspirin [Halfprin] 81 mg PO DAILY 07/20/20 [History] Furosemide [Lasix] 20 mg PO DAILY 07/20/20 [History] Gabapentin [Neurontin] 300 mg PO DAILY 07/20/20 [History] Loperamide [Imodium] 2 mg PO ASDIRECTED PRN 07/20/20 [History] Mag Hydrox/Aluminum Hyd/Simeth [Mylanta Maximum Strength Liq] 10 ml PO QID PRN 07/20/20 [History] Magnesium Hydroxide [Milk of Magnesia] 30 ml PO DAILY PRN 07/20/20 [History] Metoprolol Tartrate [Lopressor] 50 mg PO BID 07/20/20 [History] Triamcinolone Acetonide [Triamcinolone Acetonide 0.1% Crm] 1 applic TOP TID PRN 07/20/20 [History] atorvaSTATin [Lipitor] 40 mg PO DAILY 07/20/20 [History] bisacodyL [Dulcolax] 10 mg RC Q3D PRN 07/20/20 [History] dilTIAZem HCL [Cartia Xt] 120 mg PO DAILY 07/20/20 [History] glipiZIDE [Glucotrol] 2.5 mg PO BID 07/20/20 [History] guaiFENesin [Robitussin] 200 mg PO Q4H PRN 07/20/20 [History] Ferrous Sulfate 325 mg PO BID #60 tablet 07/24/20 [Rx] Pantoprazole [ProTONIX] 40 mg PO 0600 #30 tab.cr 07/24/20 [Rx] Carbamide Peroxide [Debrox 6.5% Otic Soln] 5 ml OT PRN 03/22/21 [History] Citalopram Hydrobromide [Celexa] 20 mg PO DAILY 03/22/21 [History] Past Medical History HEENT History: Reports: Epistaxis Cardiovascular History: Reports: Afib, High Cholesterol, Hypertension, [place] Gastrointestinal History: Reports: GERD Musculoskeletal History: Reports: Arthritis, Back Pain, Chronic, Osteoarthritis Psychiatric History: Reports: Dementia Endocrine/Metabolic History: Reports: Diabetes, Type II Hematologic History: Reports: Anemia - Past Surgical History HEENT Surgical History: Reports: Cataract Surgery GI Surgical History: Reports: Appendectomy, Cholecystectomy Musculoskeletal Surgical History: Reports: Shoulder Surgery Social & Family History - Family History Family Medical History: No Pertinent Family History - Caffeine Use Caffeine Use: Reports: Coffee Caffeine Use Comment: with meals ED ROS GENERAL - Review of Systems Review Of Systems: See Below Constitutional: Reports: No Symptoms HEENT: Reports: No Symptoms Respiratory: Reports: No Symptoms Cardiovascular: Reports: No Symptoms Endocrine: Reports: No Symptoms GI/Abdominal: Reports: No Symptoms : Reports: No Symptoms Musculoskeletal: Reports: No Symptoms Skin: Reports: Wound Neurological: Reports: No Symptoms Psychiatric: Reports: No Symptoms Hematologic/Lymphatic: Reports: No Symptoms Immunologic: Reports: No Symptoms ED EXAM, SKIN/RASH Exam: See Below Exam Limited By: No Limitations General Appearance: Alert, WD/WN, No Apparent Distress, Other (pleasant, alert, no pain or other c/o) Eye Exam: Bilateral Eye: EOMI, PERRL, Other (follows finger on command) Ears: Normal External Exam Nose: Normal Inspection, Normal Mucosa Throat/Mouth: Normal Inspection, Normal Lips, Normal Voice, No Airway Compromise, Other (talks complete sentences, normal voice) Head: Other (abrasion L forehead with 2 x 2 x 0.25 cm area swell, no bony tender) Neck: Supple, Non-Tender Respiratory/Chest: No Respiratory Distress, Lungs Clear, Normal Breath Sounds Cardiovascular: Regular Rate, Rhythm, Other (trace pretib edema b/l) GI/Abdominal: Soft, Non-Tender, No Distention Back Exam: No: Full Range of Motion, CVA Tenderness (L) Extremities: Other (L knee with superficial abrasion centrally, no lac, no swell, no PT. L arm with 5 x 1 cm abrasion epidermis) Neurological: Alert, CN II-XII Intact, No Motor/Sensory Deficits Psychiatric: Normal Affect, Normal Mood. No: Anxious Skin: Warm, Dry Lymphatic: No Adenopathy Course - Re-Assessments/Exams Free Text/Narrative Re-Assessment/Exam: 04/29/21 00:02 pt bumped his head on wall, not on ground, no DASILVA on ASA, however no clinical concern for internal injury Departure - Departure Time of Disposition: 23:53 Disposition: Home, Self-Care 01 Condition: Good Clinical Impression: Contusion of left knee, Abrasion of knee, left, Abrasion of left arm, Fall from standing - Discharge Information *PRESCRIPTION DRUG MONITORING PROGRAM REVIEWED*: Not Applicable *COPY OF PRESCRIPTION DRUG MONITORING REPORT IN PATIENT RENAN: Not Applicable Instructions: Contusion Additional Instructions: Continue usual care and usual medications. Give acetaminophen 325 mg 2 tabs every 4 hours as needed for pain. See his physician tomorrow if having any symptoms.
[2021-04-29 01:10] VITALS: BP 130/77; PULSE 94
== END 2021-04-29 00:30 | disposition home or self-care (01) ==
LOC: FB.ED 23:18
DX: S80.02XA Contusion of left knee, initial encounter (principal); S40.812A Abrasion of left upper arm, initial encounter; S00.81XA Abrasion of other part of head, initial encounter; I48.91 Unspecified atrial fibrillation; E78.00 Pure hypercholesterolemia, unspecified; I10 Essential (primary) hypertension; I25.2 Old myocardial infarction; K21.9 Gastro-esophageal reflux disease without esophagitis; M19.90 Unspecified osteoarthritis, unspecified site; F03.90 Unspecified dementia, unspecified severity, without behavioral disturbance, psychotic disturbance, mood disturbance, and anxiety; E11.9 Type 2 diabetes mellitus without complications; D64.9 Anemia, unspecified; Z79.84 Long term (current) use of oral hypoglycemic drugs; Z79.82 Long term (current) use of aspirin; Z79.899 Other long term (current) drug therapy; W18.30XA Fall on same level, unspecified, initial encounter; Y92.002 Bathroom of unspecified non-institutional (private) residence as the place of occurrence of the external cause
CPT/HCPCS: 99283

== ENCOUNTER → 2021-05-04 | Day surgery (SDC) | payer MEDICARE, OTHER ==
[~2021-05-04] MED LIST: Lactated Ringers 1,000 ML IV SCH; Propofol 200 MG/20 ML SDV IV ONE; Sodium Chloride 0.9% 10 ML Syringe FLUSH PRN
--- NOTE | 2021-05-04 13:17 | PCM.PN ---
- General Info Date of Service: 05/04/21 - Review of Systems Systems Review Comment:: 85 y/o male with history of recent rectal bleeding and history of recent normal colonoscopy here for EGD. He is medically stable to proceed. His recent history and physical is reviewed and no significant changes are noted. I have discussed the propose EGD with the patient. He agrees to proceed accepting risks. - Patient Data Vitals - Most Recent: Last Vital Signs Temp 98.8 F 05/04/21 11:30 Pulse 79 05/04/21 11:30 Resp 16 05/04/21 11:30 BP 123/68 05/04/21 11:30 Pulse Ox 95 05/04/21 11:30 Weight - Most Recent: 208 lb 12.444 oz Med Orders - Current: Current Medications Lactated Ringer's (Ringers, Lactated) 1,000 mls @ 125 mls/hr IV ASDIRECTED ALICE Last Admin: 05/04/21 11:53 Dose: 125 mls/hr Documented by: Sodium Chloride (Sodium Chloride 0.9% 10 Ml Syringe) 10 ml FLUSH ASDIRECTED PRN PRN Reason: Keep Vein Open Sepsis Event Note - Focused Exam Vital Signs: Vital Signs Temp Pulse Resp BP Pulse Ox 05/04/21 11:30 98.8 F 79 16 123/68 95 - Problem List Review Problem List Initiated/Reviewed/Updated: Yes - My Orders Last 24 Hours: My Active Orders 05/04/21 Breakfast Nothing Per Oral Diet [DIET] 05/04/21 09:47 Resuscitation Status Routine 05/04/21 11:15 Patient Status [ADT] Routine Patient to Empty Bladder [RC] ASDIRECTED Verify Patient Consent Obtain [RC] ASDIRECTED Lactated Ringers [Ringers, Lactated] 1,000 ml IV ASDIRECTED Sodium Chloride 0.9% [Saline Flush] 10 ml FLUSH ASDIRECTED PRN Peripheral IV Insertion Adult [OM.PC] Routine 05/04/21 11:44 Accu Check [Blood Glucose Check, Bedside] [RC] ONETIME - Assessment Assessment:: GI bleeding - Plan Plan:: EGD
--- NOTE | 2021-05-04 13:43 | PCM.OPNOTE ---
- General Post-Op/Procedure Note Date of Surgery/Procedure: 05/04/21 Operative Procedure(s): EGD with Biopsy Findings: No bleeding seen. Mild gastritis in gastric antrum noted but otherwise normal exam. Pre Op Diagnosis: GI bleeding Post-Op Diagnosis: Gastritis Anesthesia Technique: MAC Primary Surgeon: Luis A Pena Pathology: Biopsies of gastric antrum EBL in mLs: 2 Complications: None Condition: Good
--- NOTE | 2021-05-04 14:12 | OR ---
DATE OF OPERATION: 05/04/2021 SURGEON: Luis A Pena MD PREOPERATIVE DIAGNOSIS: Gastrointestinal bleeding. POSTOPERATIVE DIAGNOSIS: Gastritis. OPERATION PERFORMED: Esophagogastroduodenoscopy with biopsy. INDICATIONS FOR SURGERY: This 85-year-old male has history of unexplained GI bleeding with bright red blood from his rectum. Reports indicate that he did have a recent colonoscopy which was reported as normal. He is referred for upper endoscopy. FINDINGS: No blood or signs of active bleeding was seen on the upper endoscopy. The patient does have a mild degree of hyperemia of the gastric antrum, but there were no erosions and no ulcerations seen. No definite sources for the patient's bleeding are noted on this exam. PROCEDURE IN DETAIL: The patient was taken to the procedure room. He was given intravenous sedation and with him in the left lateral decubitus position, the Olympus gastroscope was advanced through a mouth guard into the oral cavity. Under direct visualization, the scope was advanced without difficulty down through the esophagus, stomach, and into the duodenum where examination to the third portion was performed. The duodenum was carefully examined and appeared normal. The scope was withdrawn back into the stomach where full examination including retroflexed examination of the fundus was performed. Random biopsies of the antrum were taken to rule out H pylori. Examination was then continued, and the GE junction and esophagus were re-examined as the scope was withdrawn. The scope was removed and the patient was taken from the procedure room in satisfactory condition. ESTIMATED BLOOD LOSS: 2 mL. COMPLICATIONS: None. PROGNOSIS: Good. /[id number] MICHELLE/LISANDRA
[2021-05-04 14:48] VITALS: BP 143/83; PULSE 98
== END | disposition home or self-care (01) ==
LOC: FB.SDS 11:20
PROVIDERS: ATTEND Surgery
DX: K29.50 Unspecified chronic gastritis without bleeding (principal); D64.9 Anemia, unspecified; S70.11XD Contusion of right thigh, subsequent encounter; E11.9 Type 2 diabetes mellitus without complications; I12.9 Hypertensive chronic kidney disease with stage 1 through stage 4 chronic kidney disease, or unspecified chronic kidney disease; N18.30 Chronic kidney disease, stage 3 unspecified; E78.2 Mixed hyperlipidemia; I25.2 Old myocardial infarction; Z79.899 Other long term (current) drug therapy; W19.XXXD Unspecified fall, subsequent encounter
CPT/HCPCS: 00731; 43239; 82947; 88305; 88342; J2704; J7120

== ENCOUNTER 2021-05-28 16:58 | Emergency (ER) | payer MEDICARE, OTHER ==
--- NOTE | 2021-05-28 17:15 | EDM.PDOC ---
ED HPI GENERAL MEDICAL PROBLEM - General Chief Complaint: Head Injury Stated Complaint: ABRASION R UPPER LIP FROM FALL Time Seen by Provider: 05/28/21 17:09 Source of Information: Reports: Patient, EMS, Old Records History Limitations: Reports: No Limitations - History of Present Illness INITIAL COMMENTS - FREE TEXT/NARRATIVE: 85 yo male arrives from [facility] via EMS after a fall today onto carpet. No LOC, DASILVA, neck pain or nausea. Vitals stable per EMS en route. No change in LOC since the fall. Does have some facial abrasions, and an small lip laceration. Is not on any anticoagulation agents. Onset: Today, Sudden Onset Date: 05/28/21 Duration: Minutes: Location: Reports: Face Quality: Reports: Burning Severity: Mild Improves with: Reports: None Worsens with: Reports: None Context: Reports: Trauma Associated Symptoms: Reports: Other (facial injuries). 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 (see below) (none) - Related Data Allergies Allergy/AdvReac Type Severity Reaction Status Date / Time No Known Allergies Allergy Verified 04/29/21 00:49 Home Meds: Home Meds metFORMIN HCl [Metformin HCl] 1,000 mg PO BIDMEALS 01/23/16 [History] Donepezil [Aricept] 10 mg PO BEDTIME 12/02/19 [History] Aspirin [Halfprin] 81 mg PO DAILY 07/20/20 [History] Gabapentin [Neurontin] 300 mg PO DAILY 07/20/20 [History] Loperamide [Imodium] 2 mg PO ASDIRECTED PRN 07/20/20 [History] Mag Hydrox/Aluminum Hyd/Simeth [Mylanta Maximum Strength Liq] 10 ml PO QID PRN 07/20/20 [History] Magnesium Hydroxide [Milk of Magnesia] 30 ml PO DAILY PRN 07/20/20 [History] Metoprolol Tartrate [Lopressor] 50 mg PO BID 07/20/20 [History] Triamcinolone Acetonide [Triamcinolone Acetonide 0.1% Crm] 1 applic TOP TID PRN 07/20/20 [History] atorvaSTATin [Lipitor] 40 mg PO DAILY 07/20/20 [History] bisacodyL [Dulcolax] 10 mg RC Q3D PRN 07/20/20 [History] dilTIAZem HCL [Cartia Xt] 120 mg PO DAILY 07/20/20 [History] glipiZIDE [Glucotrol] 2.5 mg PO BID 07/20/20 [History] guaiFENesin [Robitussin] 200 mg PO Q4H PRN 07/20/20 [History] Pantoprazole [ProTONIX] 40 mg PO 0600 #30 tab.cr 07/24/20 [Rx] Carbamide Peroxide [Debrox 6.5% Otic Soln] 5 drop EARBOTH BID PRN 03/22/21 [History] Citalopram Hydrobromide [Celexa] 20 mg PO DAILY 03/22/21 [History] Acetaminophen [Acetaminophen Extra Strength] 1,000 mg PO TID 05/19/21 [History] Ferrous Gluconate [Iron] 240 mg PO Q48H 05/19/21 [History] Furosemide [Lasix] 40 mg PO 1400 05/19/21 [History] Furosemide [Lasix] 80 mg PO DAILY 05/19/21 [History] Hydrocortisone Acetate [Anucort-HC] 25 mg RC BID PRN 05/19/21 [History] traMADol HCl [Tramadol HCl] 50 mg PO Q6H PRN 05/19/21 [History] Diltiazem [Dilacor XR] 240 mg PO DAILY cap.er 05/23/21 [Rx] Pantoprazole [ProTONIX] 40 mg PO DAILY@0600 #30 tab.cr 05/23/21 [Rx] cephALEXin [Keflex] 500 mg PO Q6H 5 Days #20 cap 05/23/21 [Rx] Past Medical History HEENT History: Reports: Cataract, Epistaxis, Impaired Vision Cardiovascular History: Reports: Afib, High Cholesterol, Hypertension, [place], SOB on Exertion Respiratory History: Reports: SOB Gastrointestinal History: Reports: GERD Genitourinary History: Reports: Urinary Incontinence 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 Neurological History: Reports: Other (See Below) Other Neuro History: PT FORGETFUL AT TIMES. Psychiatric History: Reports: Dementia Endocrine/Metabolic History: Reports: Diabetes, Type II Hematologic History: Reports: Anemia Immunologic History: Reports: None Dermatologic History: Reports: None - Infectious Disease History Infectious Disease History: Reports: Measles, Mumps - Past Surgical History HEENT Surgical History: Reports: Cataract Surgery GI Surgical History: Reports: Appendectomy, Cholecystectomy Male Surgical History: Reports: None Neurological Surgical History: Reports: None Musculoskeletal Surgical History: Reports: Shoulder Surgery Social & Family History - Family History Family Medical History: No Pertinent Family History - Caffeine Use Caffeine Use: Reports: Coffee Caffeine Use Comment: with meals ED ROS GENERAL - Review of Systems Review Of Systems: See Below Constitutional: Reports: No Symptoms HEENT: Reports: No Symptoms Respiratory: Reports: No Symptoms Cardiovascular: Reports: No Symptoms GI/Abdominal: Reports: No Symptoms. Denies: Nausea Musculoskeletal: Reports: No Symptoms. Denies: Neck Pain Skin: Reports: Wound (forehead abrasion, lip laceration) Neurological: Reports: No Symptoms. Denies: Headache Psychiatric: Reports: No Symptoms ED EXAM, HEAD INJURY - Physical Exam Exam: See Below Exam Limited By: No Limitations General Appearance: Alert, WD/WN, No Apparent Distress Head: Facial Abrasions (R forehead), Facial Lacerations (just above R side of upper lip) Eyes: Bilateral Eye: EOMI, PERRL Ears: Other (bilat hearing aids) Nose: Normal Inspection. No: Active Bleeding, Dried Blood Throat/Mouth: Normal Inspection, Normal Lips, Normal Oropharynx, Normal Voice, No Airway Compromise Neck: Non-Tender, Full Range of Motion Respiratory: No Respiratory Distress, No Accessory Muscle Use Extremities: Normal Inspection Neurologic: senior web architect II-XII nml As Tested, No Motor/Sensory Deficits, Alert, Normal Mood/Affect, Oriented x 3 ED LACERATION/WOUND & PATEL PROC - Laceration/Wound Repair Right Lower Face Lac/wound length in cm: 1 Appearance: Subcutaneous, Linear Anesthetic Type: Local Local Anesthesia - Lidocaine (Xylocaine): 1% Plain Local Anesthetic Volume: 2cc Skin Prep: Saline Exploration/Debridement/Repair: Wound Explored # of Sutures: 2 Suture Type: Nylon, Interrupted, Simple Drain Placement: No Sterile Dressing Applied: None Tetanus Status Addressed: Yes Complications: No Departure - Departure Time of Disposition: 17:31 Disposition: Home, Self-Care 01 Condition: Good Clinical Impression: Forehead abrasion Qualifiers: Encounter type: initial encounter Qualified Code(s): S00.81XA - Abrasion of other part of head, initial encounter Facial laceration Qualifiers: Encounter type: initial encounter Qualified Code(s): S01.81XA - Laceration without foreign body of other part of head, initial encounter - Discharge Information *PRESCRIPTION DRUG MONITORING PROGRAM REVIEWED*: Not Applicable *COPY OF PRESCRIPTION DRUG MONITORING REPORT IN PATIENT RENAN: Not Applicable Instructions: Facial Laceration, [id number] Referrals: Valdo Downs MD [Primary Care Provider] - Forms: ED Department Discharge Additional Instructions: Clean wound twice daily with 1/2 water and 1/2 peroxide. Dry. Apply antibiotic ointment. Stitches out in 6 days. Recheck for signs of infection.
[2021-05-28] MEDS: Bacitracin Oint 1 GM U/D Packet TOP ONE (17:30)
[2021-05-28 17:40] VITALS: BP 121/49; PULSE 88
== END 2021-05-28 17:57 | disposition home or self-care (01) ==
LOC: FB.ED 16:58
DX: S01.81XA Laceration without foreign body of other part of head, initial encounter (principal); I48.91 Unspecified atrial fibrillation; E78.00 Pure hypercholesterolemia, unspecified; I10 Essential (primary) hypertension; I25.2 Old myocardial infarction; K21.9 Gastro-esophageal reflux disease without esophagitis; M19.90 Unspecified osteoarthritis, unspecified site; E11.9 Type 2 diabetes mellitus without complications; D64.9 Anemia, unspecified; Z79.82 Long term (current) use of aspirin; Z79.84 Long term (current) use of oral hypoglycemic drugs; Z79.899 Other long term (current) drug therapy; W18.30XA Fall on same level, unspecified, initial encounter; Y92.009 Unspecified place in unspecified non-institutional (private) residence as the place of occurrence of the external cause
CPT/HCPCS: 12011; 99283-25

== ENCOUNTER 2021-12-10 10:28 | Emergency (ER) | payer MEDICARE, OTHER ==
[2021-12-10 20:21] VITALS: BP 158/75; PULSE 76
== END 2021-12-10 10:40 ==
LOC: FB.ED 10:28
DX: S00.83XA Contusion of other part of head, initial encounter (principal); N17.9 Acute kidney failure, unspecified; I12.9 Hypertensive chronic kidney disease with stage 1 through stage 4 chronic kidney disease, or unspecified chronic kidney disease; N18.9 Chronic kidney disease, unspecified; R79.0 Abnormal level of blood mineral; I48.91 Unspecified atrial fibrillation; E78.00 Pure hypercholesterolemia, unspecified; I25.2 Old myocardial infarction; R79.82 Elevated C-reactive protein (CRP); K21.9 Gastro-esophageal reflux disease without esophagitis; E11.9 Type 2 diabetes mellitus without complications; M19.90 Unspecified osteoarthritis, unspecified site; Z79.82 Long term (current) use of aspirin; Z20.822 Contact with and (suspected) exposure to COVID-19; Z79.899 Other long term (current) drug therapy; W18.30XA Fall on same level, unspecified, initial encounter; Y92.129 Unspecified place in nursing home as the place of occurrence of the external cause
CPT/HCPCS: 36415; 70450; 71045; 80053; 81001; 83735; 83880; 84484; 85025; 86140; 93005; 99283; 99285-25; U0002

== ENCOUNTER 2021-12-20 10:55 | Emergency (ER) | payer MEDICARE, OTHER ==
[2021-12-20] MEDS ORDERED: Sodium Chloride 0.9% 10 ML Syringe FLUSH PRN (12:57)
[2021-12-20] MEDS ORDERED: Sodium Chloride 0.9% 1,000 ML IV SCH ×2 (13:00→13:15)
== END 2021-12-20 15:35 | disposition home or self-care (01) ==
LOC: FB.ED 10:55
DX: N17.9 Acute kidney failure, unspecified (principal); D64.9 Anemia, unspecified; E86.0 Dehydration; I48.91 Unspecified atrial fibrillation; E78.00 Pure hypercholesterolemia, unspecified; I10 Essential (primary) hypertension; I25.2 Old myocardial infarction; K21.9 Gastro-esophageal reflux disease without esophagitis; E11.9 Type 2 diabetes mellitus without complications; Z79.82 Long term (current) use of aspirin; Z79.84 Long term (current) use of oral hypoglycemic drugs; Z79.899 Other long term (current) drug therapy
CPT/HCPCS: 36415; 70450; 70486; 80053; 85025; 99283; 99284-25; J7030